=== PATIENT | male | born 1960 | race Caucasian/White ===

== ENCOUNTER → 2017-02-13 | Outpatient (CLI) | payer BC ==
--- NOTE | 2017-02-13 09:01 | CT ---
EXAMINATION TYPE: CT abdomen pelvis w con DATE OF EXAM: 02/13/2017 7:32 AM COMPARISON: NONE HISTORY: Lt Inguinal Hernia for 10 years per patient. History of vasectomy. CT DLP: 762.7 mGycm, Automated Exposure Control for Dose Reduction was Utilized. CONTRAST: CT scan of the abdomen and pelvis is performed with oral and with IV Contrast, patient injected with 100 mL of Omnipaque 300. FINDINGS: LUNG BASES: No significant abnormality is appreciated. LIVER/GB: No significant abnormality is appreciated. PANCREAS: No significant abnormality is seen. SPLEEN: No significant abnormality is seen. ADRENALS: No significant abnormality is seen. KIDNEYS: There are 2-3 calculi measuring up to 3 mm in size scattered throughout the right kidney, la rgest is seen on axial image 29 mid pole level. No left-sided renal calculi are present. There is sym metric cortical medullary uptake and excretion without evidence of hydronephrosis bilaterally. BOWEL: The oral contrast reaches level of the distal left colon. There is no suspicious small or larg e bowel dilatation seen. Normal contrast-filled appendix is seen extending medially from the cecum. T here are some diverticula in the sigmoid colon. There is no CT evidence for acute diverticulitis. The re are scattered pelvic phleboliths. PROSTATE/SEMINAL VESICLES: Some central zone calcifications are seen in normal size prostate gland. S eminal vesicles are somewhat bulky. LYMPH NODES: No greater than 1cm abdominal or pelvic lymph nodes are appreciated. OSSEOUS STRUCTURES: No significant abnormality is seen. OTHER: There is small fat-containing left inguinal hernia. There is mild mixed plaque in the visualiz ed abdominal aorta. IMPRESSION: Small fat-containing left inguinal hernia is confirmed. Nonobstructing small right-sided renal calculi are noted.
== END | disposition home or self-care (01) ==
LOC: RADCTMAIN 07:01
PROVIDERS: ATTEND Surgery
DX: K40.90 Unilateral inguinal hernia, without obstruction or gangrene, not specified as recurrent (principal); N20.0 Calculus of kidney
CPT/HCPCS: 74177; Q9967

== ENCOUNTER → 2017-03-06 | Day surgery (SDC) | payer BC ==
[2017-03-05 08:42] VITALS: BMI 25.5
[~2017-03-06] MED LIST: ALPRAZolam 0.5 MG TAB PO PRN; BUPIVACAIN-EPI 0.25%-1:200,000 30 ML VIAL SQ ONE; CLINDAMYCIN 900 MG in DEXTROSE 5% IN WATER 50 ML IVPB ONE; DEXAMETHASONE SOD PHOSPHATE 10 MG/ML 1 ML VIAL IV ONE; FAMOTIDINE 20 MG/2 ML VIAL IV PRN; GLYCOPYRROLATE 0.2 MG/ML 2 ML VIAL ONE; HEPARIN SODIUM,PORCINE 5,000 UNIT/ML 1 ML VIAL SQ ONE; KETOROLAC 30 MG/ML 1 ML VIAL ONE; LEVOFLOXACIN 500MG-D5W PMX 500 MG in DEXTROSE/WATER 1 100ML.BAG IVPB ONE; MIDAZOLAM 2 MG/2 ML VIAL IV PRN; MIDAZOLAM 2 MG/2 ML VIAL ONE; NEOSTIGMINE 1 MG/ML 10 ML VIAL ONE; ONDANSETRON 4 MG/2 ML VIAL IVP ONE; PROPOFOL 10 MG/ML 20 ML VIAL IV ONE; ROCURONIUM BROMIDE 10 MG/ML 10 ML VIAL IV ONE; SCOPOLAMINE 1.5MG/72HR PATCH TRANSDERM ONE; SUCCINYLCHOLINE CHLORIDE 100 MG/5 ML SYR IV ONE; fentaNYL (PF) 50 MCG/ML 2 ML AMP ONE
--- NOTE | 2017-03-06 11:51 | P.GSHP ---
History of Present Illness H&P Date: 03/06/17 Chief Complaint: Left inguinal hernia This a 56-year-old male referred from Dr. Moncho Alegria. Patient presents today for laparoscopic robotic system repair of left inguinal hernia. - Constitutional Constitutional: Reports as per HPI Past Medical History Past Medical History: Hypertension, Sleep Apnea/CPAP/BIPAP Additional Past Medical History / Comment(s): PAST HX, NO LONGER USES CPAP History of Any Multi-Drug Resistant Organisms: None Reported Additional Past Surgical History / Comment(s): NASAL SX X3 Past Anesthesia/Blood Transfusion Reactions: No Reported Reaction Past Psychological History: No Psychological Hx Reported Smoking Status: Never smoker Past Alcohol Use History: Occasional Past Drug Use History: Marijuana Additional Drug Use History / Comment(s): OCCASIONAL USE, INSTRUCTED NOT TO USE 24HRS PRIOR TO PROCEDURE - Past Family History Father Family Medical History: Cancer Additional Family Medical History / Comment(s): LYMPHOMA Medications and Allergies Home Medications Medication Instructions Recorded Confirmed Type Aspirin [Adult Low Dose Aspirin EC] 81 mg PO DAILY 03/05/17 03/05/17 History Ginkgo Biloba [place] Extract [Ginkgo] 60 mg PO DAILY 03/05/17 03/05/17 History Multivitamins, Thera [Multivitamin 1 tab PO DAILY 03/05/17 03/05/17 History (formulary)] Olmesartan/Hydrochlorothiazide 1 tab PO DAILY 03/05/17 03/05/17 History [Benicar Hct 40-25 mg Tablet] Allergies Allergy/AdvReac Type Severity Reaction Status Date / Time acetaminophen [From Vicodin] Allergy Rash/Hives Verified 03/06/17 11:15 hydrocodone [From Vicodin] Allergy Rash/Hives Verified 03/06/17 11:15 Penicillins Allergy Swelling Verified 03/06/17 11:15 Surgical - Exam Vital Signs Temp Pulse Resp BP Pulse Ox 98.1 F 74 16 140/77 100 03/06/17 11:08 03/06/17 11:08 03/06/17 11:08 03/06/17 11:08 03/06/17 11:08 - General well developed, no distress - Eyes PERRL - ENT normal pinna - Neck no masses - Respiratory normal expansion - Cardiovascular Rhythm: regular - Abdomen Abdomen: soft, non tender Hernia: inguinal (Reducible left inguinal hernia) Assessment and Plan Plan: Left renal hernia. We'll perform laparoscopic robotic system repair.
[2017-03-06] MEDS: LACTATED RINGERS 1,000 ML IV SCH (11:52)
[2017-03-06] MEDS: LIDOCAINE 1% 20 ML VIAL (10MG/ML) FOR IV START INTRADERMA PRN ×2 (11:52→11:53)
--- NOTE | 2017-03-06 13:11 | P.OP ---
Date of Procedure: 03/06/17 Preoperative Diagnosis: Left inguinal hernia Postoperative Diagnosis: Left internal hernia Procedure(s) Performed: Laparoscopic robotic-assisted repair of left inguinal hernia Anesthesia: TK Surgeon: Luke Bhatia Estimated Blood Loss (ml): 5 Pathology: none sent Condition: stable Disposition: PACU Description of Procedure: The patient's placed on the operating table in the supine position. The patient received general anesthesia. The patient's abdomen was prepped and draped in usual sterile fashion. The skin was anesthetized 1% local Xylocaine at the incision sites. Using an 11 blade a skin incision was made at the umbilicus. The fascia was grasped with a Valeriy and then the peritoneal cavity was entered with the Veress needle. Position of the Veress needle was confirmed with a positive drop test. After adequate insufflation a 5 mm trocar was placed into the peritoneal cavity. The Laparoscope was placed the peritoneal cavity. And a robotic 8 mm trocar was placed in the right lateral position and then another 8 mm robotic trochars placed in the left lateral position. The original 5 mm trocar was exchanged for a 12 mm trocar. The patient was placed in reverse Trendelenburg and then the patient was docked to the robot. Next the peritoneum over top of the left inguinal hernia was incised and then using blunt and sharp dissection and electrocautery the hernia sac was dissected free from the floor of the inguinal canal. The hernia sac was completely reduced into the peritoneal cavity. And then using the Pro tin tie machine operator automatic mesh the hernia was repaired. The peritoneum was then sutured with 20V lock suture. The patient was then undocked the robot. The needle was withdrawn from the peritoneal cavity. The umbilical trocar site was closed with 0 Ethibond suture. The skin was closed interrupted 3-0 Monocryl suture. Dermabond dressing was applied. Patient was sent to recovery in stable condition.
[2017-03-06 13:33] VITALS: RESP 18; TEMP 97.8
[2017-03-06] MEDS: HYDROmorphone 1 MG/ML 1 ML SYRINGE IVP PRN ×2 (13:42→14:15)
[2017-03-06 14:53] VITALS: BP 130/88; PULSE 92
== END ==
LOC: OR 09:56
PROVIDERS: ATTEND Surgery
DX: K40.90 Unilateral inguinal hernia, without obstruction or gangrene, not specified as recurrent (principal); I10 Essential (primary) hypertension; G47.30 Sleep apnea, unspecified; Z79.82 Long term (current) use of aspirin; Z79.899 Other long term (current) drug therapy; Z88.6 Allergy status to analgesic agent; Z88.5 Allergy status to narcotic agent; Z88.0 Allergy status to penicillin
CPT/HCPCS: 49650; J2250; J1644; J1100; J2710; J2405; J1956; J3010; J1885; J1170; J0330; J2704

== ENCOUNTER → 2017-03-19 | Outpatient (CLI) | payer BC ==
--- NOTE | 2017-03-19 09:55 | US ---
EXAMINATION TYPE: US prostate transrectal DATE OF EXAM: 03/19/2017 9:42 AM COMPARISON: NONE CLINICAL HISTORY: R97.2 elevated PSA. This examination was performed using the transrectal probe. EXAM MEASUREMENTS: Gland Size: 4.1 x 1.8 x 4.6 Volume: 17.9 Predicted PSA: 2.1 Actual PSA (if available):2.5 No masses seen in peripheral zone, central zone thick walled cyst note. IMPRESSION: No suspicious peripheral zone lesion is identified. Predicted PSA = volume x 0.12 ng/ml Calculated Volume = 0.5236 x L x W x H
== END | disposition home or self-care (01) ==
LOC: RADUSMAIN 08:52
PROVIDERS: ATTEND Family Medicine
DX: R97.20 Elevated prostate specific antigen [PSA] (principal)
CPT/HCPCS: 76872

== ENCOUNTER 2017-04-11 06:26 | Day surgery (SDC) | payer BC ==
[2017-04-09 17:24] VITALS: BMI 25.0
[~2017-04-11 06:26] MED LIST changes: -ALPRAZolam 0.5 MG TAB PO PRN; -BUPIVACAIN-EPI 0.25%-1:200,000 30 ML VIAL SQ ONE; -CLINDAMYCIN 900 MG in DEXTROSE 5% IN WATER 50 ML IVPB ONE; -DEXAMETHASONE SOD PHOSPHATE 10 MG/ML 1 ML VIAL IV ONE; -FAMOTIDINE 20 MG/2 ML VIAL IV PRN; -GLYCOPYRROLATE 0.2 MG/ML 2 ML VIAL ONE; -HEPARIN SODIUM,PORCINE 5,000 UNIT/ML 1 ML VIAL SQ ONE; -KETOROLAC 30 MG/ML 1 ML VIAL ONE; +LACTATED RINGERS 1,000 ML IV SCH; -LEVOFLOXACIN 500MG-D5W PMX 500 MG in DEXTROSE/WATER 1 100ML.BAG IVPB ONE; -MIDAZOLAM 2 MG/2 ML VIAL IV PRN; -MIDAZOLAM 2 MG/2 ML VIAL ONE; -NEOSTIGMINE 1 MG/ML 10 ML VIAL ONE; -ONDANSETRON 4 MG/2 ML VIAL IVP ONE; -PROPOFOL 10 MG/ML 20 ML VIAL IV ONE; -ROCURONIUM BROMIDE 10 MG/ML 10 ML VIAL IV ONE; -SCOPOLAMINE 1.5MG/72HR PATCH TRANSDERM ONE; -SUCCINYLCHOLINE CHLORIDE 100 MG/5 ML SYR IV ONE; -fentaNYL (PF) 50 MCG/ML 2 ML AMP ONE
[2017-04-11] MEDS ORDERED: LACTATED RINGERS 1,000 ML IV ONE (07:06)
[2017-04-11 07:12] VITALS: TEMP 98
[2017-04-11] MEDS ORDERED: PROPOFOL 10 MG/ML 20 ML VIAL IV ONE (07:49)
--- NOTE | 2017-04-11 07:59 | P.GSHP ---
History of Present Illness H&P Date: 04/11/17 Chief Complaint: Screening colonoscopy This is a 56-year-old male referred from Dr. Moncho Alegria. Patient presents today for screening colonoscopy. He denies any GI complaints. The patient had a. Colostomy 7 years ago which time he is found have benign polyps. - Constitutional Constitutional: Reports as per HPI Past Medical History Past Medical History: Hypertension, Sleep Apnea/CPAP/BIPAP Additional Past Medical History / Comment(s): NO LONGER USES CPAP History of Any Multi-Drug Resistant Organisms: None Reported Past Surgical History: Hernia Repair, Tonsillectomy Additional Past Surgical History / Comment(s): Nasal Surgery X3 Past Anesthesia/Blood Transfusion Reactions: No Reported Reaction Past Psychological History: No Psychological Hx Reported Smoking Status: Never smoker Past Alcohol Use History: Occasional Past Drug Use History: Marijuana Additional Drug Use History / Comment(s): OCCASIONAL USE - Past Family History Father Family Medical History: Cancer Additional Family Medical History / Comment(s): LYMPHOMA Medications and Allergies Home Medications Medication Instructions Recorded Confirmed Type Aspirin [Adult Low Dose Aspirin EC] 81 mg PO DAILY 03/05/17 04/11/17 History Ginkgo Biloba [place] Extract [Ginkgo] 60 mg PO DAILY 03/05/17 04/11/17 History Multivitamins, Thera [Multivitamin 1 tab PO DAILY 03/05/17 04/11/17 History (formulary)] Olmesartan/Hydrochlorothiazide 1 tab PO DAILY 03/05/17 04/11/17 History [Benicar Hct 40-25 mg Tablet] Allergies Allergy/AdvReac Type Severity Reaction Status Date / Time acetaminophen [From Vicodin] Allergy Rash/Hives Verified 04/11/17 07:03 hydrocodone [From Vicodin] Allergy Rash/Hives Verified 04/11/17 07:03 Penicillins Allergy Swelling Verified 04/11/17 07:03 Surgical - Exam Vital Signs Temp Pulse Resp BP Pulse Ox 98.0 F 72 18 125/74 92 L 04/11/17 07:07 04/11/17 07:07 04/11/17 07:07 04/11/17 07:07 04/11/17 07:07 - General well developed, no distress - Eyes PERRL - ENT normal pinna - Neck no masses - Respiratory normal expansion - Cardiovascular Rhythm: regular - Abdomen Abdomen: soft, non tender Assessment and Plan Plan: We will perform screening colonoscopy
--- NOTE | 2017-04-11 08:16 | P.OP ---
Date of Procedure: 04/11/17 Preoperative Diagnosis: Screening colonoscopy Postoperative Diagnosis: Diverticulosis Procedure(s) Performed: Colonoscopy Implants: Anesthesia: MAC Surgeon: Luke Bhatia Pathology: none sent Condition: stable Disposition: PACU Indications for Procedure: Operative Findings: Description of Procedure: The patient's placed on the endoscopy table in the lateral position. He received IV sedation. Digital rectal exam was performed which revealed no abnormalities. The flexible colonoscope was then placed the patient's anus passed throughout the entire colon. The ileocecal valve was visualized. The cecum, ascending and transverse colon appeared normal. In the descending; was mild diverticular changes. Scope was then brought back the rectum and this appeared normal. Scope was withdrawn for patient.
[2017-04-11 08:22] VITALS: RESP 16
[2017-04-11 08:45] VITALS: BP 122/74; PULSE 80
== END 2017-04-11 08:50 | disposition home or self-care (01) ==
LOC: ORWHC2ENDO 06:26
PROVIDERS: ATTEND Surgery
DX: Z12.11 Encounter for screening for malignant neoplasm of colon (principal); K57.30 Diverticulosis of large intestine without perforation or abscess without bleeding; I10 Essential (primary) hypertension; G47.30 Sleep apnea, unspecified; Z88.5 Allergy status to narcotic agent; Z88.0 Allergy status to penicillin; Z79.82 Long term (current) use of aspirin; Z79.899 Other long term (current) drug therapy; Z80.7 Family history of other malignant neoplasms of lymphoid, hematopoietic and related tissues
CPT/HCPCS: G0121; J2704

== ENCOUNTER → 2017-10-25 | Day surgery (SDC) | payer BC ==
[2017-10-25 10:49] VITALS: RESP 16; TEMP 98
[2017-10-25 22:07] VITALS: BP 130/63; PULSE 76
--- NOTE | 2017-10-25 22:53 | US ---
Ultrasound-guided transrectal biopsy of the prostate gland. HISTORY: Elevated PSA. Informed consent was obtained and all the patient's questions were answered. Topical Xylocaine gel w as applied to the probe. The prostate gland was localized sonographically and 12 total samples were obtained with 2 samples obtained from each site. An 18-gauge biopsy device was utilized. Sites incl ude right base, left base, right mid gland, left mid gland, right apex and left apex. Samples were s ent to pathology further evaluation. The patient was monitored following the biopsy for approximatel y one hour. At the time of discharge patient's urine was clear and vitals were stable. IMPRESSION: Successful ultrasound guided core biopsy of the prostate gland. Pathology results are pe nding.
== END ==
LOC: RADPROMAIN 08:49
PROVIDERS: ATTEND Family Medicine
DX: N41.0 Acute prostatitis (principal); N42.89 Other specified disorders of prostate
CPT/HCPCS: 55700; 76942; 88305; 88341; 88342

== ENCOUNTER → 2018-09-09 | Outpatient (CLI) | payer BC ==
--- NOTE | 2018-09-10 09:57 | MR ---
EXAMINATION TYPE: MR Prostate wo/w con DATE OF EXAM: 09/09/2018 COMPARISON: Transrectal ultrasound October 09, 2017 INDICATION: Prostate Ca, PSA: 5.13 ng/ml of May 23, 2018. This is increased from 3.525 on ultrasound report October 09 7. Recent Biopsy and Date: October 25, 2017 Pathology Report (If Applicable): Left apex core biopsy prostatic adenocarcinoma [place] pattern 3+3 (total score 6) involving 1 or, less than 5% of the tissue measuring less than 1 mm in length. TECHNIQUE: Examination was performed using a 3T MRI without an endorectal coil. Multiparametric imaging was perf ormed with T2 mutliplanar sequences, axial diffusion weighted imaging and dynamic contrast enhanced i maging, utilizing 7.5 mL intravenous Gadavist gadolinium contrast. FINDINGS: T1-weighted images show no significant residual hyperintensity or blood product. PROSTATE VOLUME: 4.8 cm SI x 3.4 cm AP x 3.7 cm LR Vol= 26.05 cc PSA DENSITY: 3.126 ng/ml/cc Peripheral zone shows heterogeneity with slightly indistinct slightly hypointense areas on ADC mappin g. No suspicious at least focal mild to moderate hypointense areas with increased signal on diffusion -weighted images are identified to correspond to area of biopsy-proven neoplasm left apex. Central transitional zone shows marked heterogeneity without suspicious focal nodule identified on T2 -weighted images. Capsular margin is maintained. Neurovascular bundle is intact. No suspicious adjacent adenopathy is s een. Seminal vesicles are symmetric and felt within normal limits axial image 23. Incidental mild wall thickening with diverticula in visualized sigmoid colon of the upper pelvis. Bladder is poorly distended with trabeculation and wall thickening up to 7 mm noted. There is thin septated small to moderate-sized right scrotal fluid collection or hydrocele or less li humberto large epididymal cysts superior to the right testicle noted best series 401 image 5. IMPRESSION: A focus of clinically significant cancer is not identified. Highest Assessment Category: 2 MRI Stage: T1c N0 M0 based on review of pelvic images. False negative rates for MRI range from 5-20% depending on risk profile. Assessment Categories: 1 ? Very low (clinically significant cancer is highly unlikely to be present) 2 ? Low (clinically significant cancer is unlikely to be present) 3 ? Intermediate (the presence of clinically significant cancer is equivocal) 4 ? High (clinically significant cancer is likely to be present) 5 ? Very high (clinically significant cancer is highly likely to be present) Locations: PZ = peripheral zone; TZ = transition zone CZ=central zone; AFS = anterior fibromuscular stroma a=anterior half (i.e. PZa=anterior half of peripheral zone); pm= posterior medial (i.e PZpm) pl = postero-lateral (i.e. PZpl); p = posterior half (i.e. TZp) ; a = anterior half (i.e TZa or P Za) Other: N=no or no; E= equivocal; Y=yes EPE = extraprostatic extension NVB = neurovascular bundle NA = not applicable/not available
== END | disposition home or self-care (01) ==
LOC: RADMRIMAIN 21:08
PROVIDERS: ATTEND Urology
DX: C61 Malignant neoplasm of prostate (principal)
CPT/HCPCS: 72197; 36415; A9585

== ENCOUNTER → 2018-09-09 | Outpatient (CLI) | payer BC | END | disposition home or self-care (01) | LOC: RADMRIMAIN 08:08 | PROVIDERS: ATTEND Urology | DX: C61 Malignant neoplasm of prostate (principal) | CPT/HCPCS: 82565 ==

== ENCOUNTER → 2020-08-11 | Outpatient (CLI) | payer OTHER ==
--- NOTE | 2020-08-11 07:55 | US ---
EXAMINATION TYPE: US scrotum with doppler. Grayscale and color Doppler Duplex imaging performed of t ursula scrotum. DATE OF EXAM: 08/11/2020 COMPARISON: NONE CLINICAL HISTORY: I86.1 Scrotal varices. pain left testicle EXAM MEASUREMENTS: TESTICLES: Right Testicle: 4.5 x 2.9 x 4.3 cm Left Testicle: 3.9 x 2.3 x 3.2 cm EPIDIDYMIS HEAD: Right Epididymis: 2.5 cm Left Epididymis: 0.7 cm Doppler performed to assess for testicular vascularity; good bilateral color flow and waveforms are s een. There is no evidence of testicular torsion. Presence of hydroceles: small fluid collection lateral to right testicle = 3.5cm multiple cystic areas noted within right epididymis area = 3.1 x 2.7 x 4.1cm IMPRESSION: 1. Epididymal cysts, especially notable on the right epididymis.
== END | disposition home or self-care (01) ==
LOC: RADUSWWP 06:58
PROVIDERS: ATTEND Surgery
DX: N50.3 Cyst of epididymis (principal)
CPT/HCPCS: 76870; 93975

== ENCOUNTER → 2020-09-05 | Outpatient (CLI) | payer OTHER ==
--- NOTE | 2020-09-05 15:42 | MR ---
EXAMINATION TYPE: MR Prostate wo/w con DATE OF EXAM: 09/05/2020 COMPARISON: Prior prostate MRI September 09, 2018 IMAGE QUALITY: Suboptimal but repeat not required. Motion artifact noted. INDICATION: Prostate CA PSA: 3.85 ng/ml on July 18, 2020 decreased from 5.13 on May 23, 2018 Recent Biopsy and Date: October 25, 2017 Pathology Report (If Applicable): Prostatic adenocarcinoma [place] score 3+3 = 6 less than 5% of tiss ue measuring less than 1 mm of length left apex. TECHNIQUE: Examination was performed using a 3T MRI without an endorectal coil. Multiparametric imaging was perf ormed with T2 mutliplanar sequences, axial diffusion weighted imaging and dynamic contrast enhanced i maging, utilizing 8.5 mL intravenous Gadavist gadolinium contrast. FINDINGS: PROSTATE VOLUME: 3.6 cm SI x 3.6 cm AP x 4.5 cm LR Vol= 30.5 cc PSA DENSITY: 3.66 ng/ml/cc Peripheral zone shows some areas of indistinct hypointensity without mild to moderate focal hypointen sity on ADC mapping or increased signal on diffusion-weighted imaging. Heterogeneous transitional zone without distinct areas of suspicious T2 hypointensity. Prostatic capsule is maintained. Seminal vesicles felt within normal limits. Improved distention of bladder without suspicious wall thickening on current study. Some diverticula in the sigmoid colon. Small fat-containing left inguinal hernia. Visualized osseous structures are intact. Cystic change to the right epididymis is redemonstrated. IMPRESSION: A focus of clinically significant cancer is not identified. No significant change from prior. Highest Assessment Category: 2 MRI Stage: T 1c N0 M0 based on review of pelvic images. False negative rates for MRI range from 5-20% depending on risk profile. Assessment Categories: 1 ? Very low (clinically significant cancer is highly unlikely to be present) 2 ? Low (clinically significant cancer is unlikely to be present) 3 ? Intermediate (the presence of clinically significant cancer is equivocal) 4 ? High (clinically significant cancer is likely to be present) 5 ? Very high (clinically significant cancer is highly likely to be present)
== END | disposition home or self-care (01) ==
LOC: RADMRIMAIN 08:06
PROVIDERS: ATTEND Urology
DX: C61 Malignant neoplasm of prostate (principal)
CPT/HCPCS: 72197; A9585

== ENCOUNTER 2020-11-10 21:34 | Inpatient (IN) | payer MEDICAID, OTHER ==
--- NOTE | 2020-11-10 21:49 | ED ---
General Adult HPI - General Source: RN notes reviewed <John Spears - Last Filed: 11/10/20 22:52> <Carlos Elizalde - Last Filed: 11/11/20 03:56> - General Stated complaint: Mental Health Time Seen by Provider: 11/10/20 21:42 - History of Present Illness Initial comments: 60-year-old male with a past medical history of hypertension, sleep apnea presents to the emergency room by police escort for suicidal thoughts and petition. Patient apparently overdosed on his medications this morning around 2 AM which is approximately 20 hours prior to arrival. Patient states he took about 50 pills of his Xanax and possibly some of his blood pressure medication and sertraline. Patient states he did this to kill himself. States that it was the wrong thing to do but it was over his "soul mate." The police were on scene and they state patient did have a gun on the table when they arrived. Patient has no other complaints at this time including shortness of breath, chest pain, abdominal pain, nausea or vomiting, headache, or visual changes. (John Spears) - Related Data Home Medications Medication Instructions Recorded Confirmed Olmesartan/Hydrochlorothiazide 1 tab PO BID 03/05/17 11/10/20 [Benicar Hct 40-25 mg Tablet] ALPRAZolam [ALPRAZolam XR] 2 mg PO BID PRN 11/10/20 11/10/20 ALPRAZolam [Xanax] 0.5 mg PO QID PRN 11/10/20 11/10/20 Plexus Bio-Cleanse 2 cap PO DAILY 11/10/20 11/10/20 Protriptyline HCl [Vivactil] 10 mg PO BID 11/10/20 11/10/20 Sertraline [Zoloft] 200 mg PO DAILY 11/10/20 11/10/20 hydrOXYzine HCL [Atarax] 25 mg PO TID 11/10/20 11/10/20 Allergies Allergy/AdvReac Type Severity Reaction Status Date / Time acetaminophen [From Vicodin] Allergy Rash/Hives Verified 11/10/20 22:58 hydrocodone [From Vicodin] Allergy Rash/Hives Verified 11/10/20 22:58 Penicillins Allergy Swelling Verified 11/10/20 22:58 Review of Systems ROS Other: All systems not noted in ROS Statement are negative. <John Spears - Last Filed: 11/10/20 22:52> ROS Other: All systems not noted in ROS Statement are negative. <Carlos Elizalde - Last Filed: 11/11/20 03:56> ROS Statement: Those systems with pertinent positive or pertinent negative responses have been documented in the HPI. Past Medical History Past Medical History: Hypertension, Sleep Apnea/CPAP/BIPAP Additional Past Medical History / Comment(s): PAST HX, NO LONGER USES CPAP, inguinal hernia - left side. History of Any Multi-Drug Resistant Organisms: None Reported Past Surgical History: Hernia Repair, Tonsillectomy Additional Past Surgical History / Comment(s): NASAL SX X3, colonoscopy, Past Anesthesia/Blood Transfusion Reactions: No Reported Reaction Past Psychological History: Depression Past Alcohol Use History: Occasional Past Drug Use History: Marijuana Additional Drug Use History / Comment(s): OCCASIONAL USE, INSTRUCTED NOT TO USE 24HRS PRIOR TO PROCEDURE - Past Family History Father Family Medical History: Cancer Additional Family Medical History / Comment(s): LYMPHOMA <John Spears P - Last Filed: 11/10/20 22:52> General Exam General appearance: alert, other (Slightly sleepy however speaking in full sentences and easily arousable) Head exam: Present: atraumatic (Slightly lethargic however alert and able to sp eak) Eye exam: Present: normal appearance ENT exam: Present: normal exam Neck exam: Present: normal inspection, full ROM Respiratory exam: Present: normal lung sounds bilaterally. Absent: respiratory distress Cardiovascular Exam: Present: regular rate, normal rhythm GI/Abdominal exam: Present: soft, normal bowel sounds. Absent: distended, tenderness, guarding, rebound, rigid Neurological exam: Present: alert, oriented X3 <John Spears - Last Filed: 11/10/20 22:52> Course <Carlos Elizalde - Last Filed: 11/11/20 03:56> Vital Signs 11/10/20 11/11/20 11/11/20 21:41 00:57 02:38 Temperature 98 F 98 F Pulse Rate 96 90 80 Respiratory 18 18 18 Rate Blood Pressure 113/66 120/61 103/66 O2 Sat by Pulse 98 98 97 Oximetry - Reevaluation(s) Reevaluation #1: 11/11/20 03:55 Medically clear for psychiatric evaluation (Carlos Elizalde) Reevaluation #2: 11/11/20 03:55 Patient reseen and evaluated needing psychiatric admission (Carlos Elizalde) Medical Decision Making <John Spears - Last Filed: 11/10/20 22:52> - Lab Data Result diagrams: 11/10/20 22:53 11/10/20 22:53 <Carlos Elizalde - Last Filed: 11/11/20 03:56> - Medical Decision Making Vitals are stable. On initial examination patient is awake and alert however somewhat drowsy. Poison control was contacted by RN. I considered at this time is overdose was around 2 AM this morning. EKG was performed. Care signed out to Dr. Elizalde at 2300 pending laboratory draw, medical clearance, and psychiatric evaluation. Patient is currently petitioned by state police. (John Spears) 60 male to the ER for evaluation patient will be admitted for psychiatric evaluation and treatment (Carlos Elizalde) - Lab Data Lab Results 11/10/20 11/10/20 11/10/20 Range/Units 22:53 22:53 22:53 WBC 9.0 (3.8-10.6) k/uL RBC 4.51 (4.30-5.90) m/uL Hgb 14.1 (13.0-17.5) gm/dL Hct 43.0 (39.0-53.0) % MCV 95.5 (80.0-100.0) fL MCH 31.2 (25.0-35.0) pg MCHC 32.7 (31.0-37.0) g/dL RDW 12.6 (11.5-15.5) % Plt Count 303 (150-450) k/uL MPV 7.9 Neutrophils % 65 % Lymphocytes % 26 % Monocytes % 4 % Eosinophils % 3 % Basophils % 0 % Neutrophils # 5.8 (1.3-7.7) k/uL Lymphocytes # 2.4 (1.0-4.8) k/uL Monocytes # 0.4 (0-1.0) k/uL Eosinophils # 0.3 (0-0.7) k/uL Basophils # 0.0 (0-0.2) k/uL Sodium 139 (137-145) mmol/L Potassium 4.7 (3.5-5.1) mmol/L Chloride 104 (98-107) mmol/L Carbon Dioxide 29 (22-30) mmol/L Anion Gap 6 mmol/L BUN 21 H (9-20) mg/dL Creatinine 1.52 H (0.66-1.25) mg/dL Est GFR (CKD-EPI)AfAm 57 (>60 ml/min/1.73 sqM) Est GFR (CKD-EPI)NonAf 49 (>60 ml/min/1.73 sqM) Glucose 94 (74-99) mg/dL Calcium 9.3 (8.4-10.2) mg/dL Total Bilirubin 0.5 (0.2-1.3) mg/dL AST 27 (17-59) U/L ALT 24 (4-49) U/L Alkaline Phosphatase 51 (38-126) U/L Total Protein 6.8 (6.3-8.2) g/dL Albumin 4.1 (3.5-5.0) g/dL Salicylates <1.0 mg/dL Urine Opiates Screen Not Detected (NotDetected) Ur Oxycodone Screen Not Detected (NotDetected) Urine Methadone Screen Not Detected (NotDetected) Ur Propoxyphene Screen Not Detected (NotDetected) Acetaminophen <10.0 ug/mL Ur Barbiturates Screen Not Detected (NotDetected) U Tricyclic Antidepress Not Detected (NotDetected) Ur Phencyclidine Scrn Not Detected (NotDetected) Ur Amphetamines Screen Not Detected (NotDetected) U Methamphetamines Scrn Not Detected (NotDetected) U Benzodiazepines Scrn Detected H (NotDetected) Urine Cocaine Screen Not Detected (NotDetected) U Marijuana (THC) Screen Not Detected (NotDetected) Serum Alcohol <10 mg/dL Disposition Is patient prescribed a controlled substance at d/c from ED?: No Time of Disposition: 22:53 <John Spears P - Last Filed: 11/10/20 22:52> Is patient prescribed a controlled substance at d/c from ED?: No <Carlos Elizalde - Last Filed: 11/11/20 03:56> Clinical Impression: Suicide attempt by multiple drug overdose Disposition: TRANSFER TO PSYCH HOSP/UNIT Condition: Fair
[2020-11-10] MEDS ORDERED: SODIUM CHLORIDE 0.9% 1,000 ML IV STA (22:50)
[2020-11-10 23:15] LABS: Basophils % (A) 0 %; Eosinophils # (A) 0.3 k/uL (0-0.7); Eosinophils % (A) 3 %; HGB 14.1 gm/dL (13.0-17.5); Lymphocytes # (A) 2.4 k/uL (1.0-4.8); Lymphocytes % (A) 26 %; MCH 31.2 pg (25.0-35.0); MCHC 32.7 g/dL (31.0-37.0); MCV 95.5 fL (80.0-100.0); Mean Platelet Volume 7.9; Monocytes # (A) 0.4 k/uL (0-1.0); Monocytes % (A) 4 %; Neutrophils # (A) 5.8 k/uL (1.3-7.7); Neutrophils % (A) 65 %; Platelet Count 303 k/uL (150-450); RBC 4.51 m/uL (4.30-5.90); RDW 12.6 % (11.5-15.5)
[2020-11-10 23:37] LABS: ALT 24 U/L (4-49); AST 27 U/L (17-59); Acetaminophen <10.0 ug/mL; African American GFR (CKD) 57 (>60 ml/min/1.73 sqM); Albumin 4.1 g/dL (3.5-5.0); Alcohol <10 mg/dL; Alkaline Phosphatase 51 U/L (38-126); Anion Gap 6 mmol/L; Blood Urea Nitrogen 21 mg/dL (9-20); Calcium 9.3 mg/dL (8.4-10.2); Carbon Dioxide 29 mmol/L (22-30); Chloride 104 mmol/L (98-107); Glucose 94 mg/dL (74-99); Non-African American GFR(CKD) 49 (>60 ml/min/1.73 sqM); Potassium 4.7 mmol/L (3.5-5.1); Salicylate <1.0 mg/dL; Sodium 139 mmol/L (137-145); Total Bilirubin 0.5 mg/dL (0.2-1.3); Total Protein 6.8 g/dL (6.3-8.2)
[2020-11-11 00:53] LABS: Amphetamine Screen,Urine Not Detected (NotDetected); Barbiturate Screen,Urine Not Detected (NotDetected); Benzodiazepines Screen,Urine Detected (NotDetected); Cocaine Screen,Urine Not Detected (NotDetected); Methadone Screen, Urine Not Detected (NotDetected); Opiate Screen,Urine Not Detected (NotDetected); Oxycodone Screen, Urine Not Detected (NotDetected); Phencyclidine Screen,Urine Not Detected (NotDetected); Tricyclic Antidepressant,Urine Not Detected (NotDetected); Urn Cannabinoid Scrn Not Detected (NotDetected)
[2020-11-11] MEDS ORDERED: MAGNESIUM HYDROXIDE 2,400 MG/10 ML CUP PO PRN (03:38)
[2020-11-11] MEDS ORDERED: MAG HYDROX/AL HYDROX/SIMETH 30 ML CUP PO PRN (03:38)
[2020-11-11] MEDS: NICOTINE 14MG/24HR PATCH TRANSDERM SCH (08:54)
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
[2020-11-11] MEDS: PROTRIPTYLINE HCL 10 MG PO SCH (19:50)
[2020-11-11] MEDS: LOSARTAN 50 MG TAB PO SCH (21:30)
[2020-11-11] MEDS: hydroCHLOROthiazide 25 MG TAB PO SCH (21:30)
[2020-11-12 07:54] LABS: Basophils % (A) 0 %; Eosinophils # (A) 0.2 k/uL (0-0.7); Eosinophils % (A) 3 %; HGB 15.5 gm/dL (13.0-17.5); Lymphocytes # (A) 1.9 k/uL (1.0-4.8); Lymphocytes % (A) 27 %; MCHC 33.7 g/dL (31.0-37.0); Mean Platelet Volume 7.4; Monocytes # (A) 0.3 k/uL (0-1.0); Monocytes % (A) 4 %; Neutrophils # (A) 4.6 k/uL (1.3-7.7); Neutrophils % (A) 65 %; Platelet Count 296 k/uL (150-450); RBC 4.85 m/uL (4.30-5.90)
[2020-11-12 08:11] LABS: Albumin 4.3 g/dL (3.5-5.0); Calcium 9.8 mg/dL (8.4-10.2); Potassium 4.2 mmol/L (3.5-5.1); Total Bilirubin 0.6 mg/dL (0.2-1.3); Total Protein 7.1 g/dL (6.3-8.2)
[2020-11-12] MEDS: NICOTINE 14MG/24HR PATCH TRANSDERM SCH (08:49)
[2020-11-12] MEDS: LOSARTAN 50 MG TAB PO SCH ×2 (08:50→21:21)
[2020-11-12] MEDS: hydroCHLOROthiazide 25 MG TAB PO SCH ×2 (08:50→21:21)
[2020-11-12] MEDS: PROTRIPTYLINE HCL 10 MG PO SCH ×2 (08:51→21:16)
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
[2020-11-12 14:56] LABS: Hemoglobin A1C 5.5 % (4.0-6.0)
[2020-11-13] MEDS: LOSARTAN 50 MG TAB PO SCH ×2 (08:09→21:59)
[2020-11-13] MEDS: hydroCHLOROthiazide 25 MG TAB PO SCH ×2 (08:09→21:59)
[2020-11-13] MEDS: FLUoxetine HCL 10 MG CAP PO SCH (08:09)
[2020-11-13] MEDS: NICOTINE 14MG/24HR PATCH TRANSDERM SCH (08:10)
[2020-11-13] MEDS: PROTRIPTYLINE HCL 10 MG PO SCH ×2 (08:14→20:32)
--- NOTE | 2020-11-13 10:35 | P.PN ---
Progress Note - Text Progress Note Date: 11/13/20 Interval history: Patient was seen in his room and was directable and agreeable to speak with film writer. Patient is currently very tearful. Patient expresses that he just got off the phone with his daughter and had a really good conversation and is very emotional right now. He states that he was also experiencing significant nausea and threw up this morning. He states that he feels better now that he is able to pass stool after drinking some prune juice. He is currently not reporting any suicidal or homicidal ideation, intention, and/or plan. He expresses significant regret for his actions and is very tearful and emotional. He is not reporting any auditory or visual hallucinations. The patient did state that he is uncertain of when he last took his psychotropic medications prior to this overdose on Xanax. Mental status exam: General Appearance: Patient appears to be stated age is alert, directable, and cooperative. Patient has a lesion on the bridge of his nose. Behavior: Patient is very tearful and emotional during the interview and is crying. Speech: Patient's speech is fluent and nonpressured. Mood/Affect: Mood is very sad, affect is congruent and tearful. Suicidality/Homicidality: Patient denies having any suicidal or homicidal ideation intent or plan. Perceptions: Patient denies any auditory or visual hallucinations. Though content/process: There is no evidence of any delusional thought content and thought process is linear and goal-directed. Memory and concentration: AOX3, grossly intact for the purposes of this session Judgment and insight: Poor Assessment/Plan: Continue with current diagnosis. Patient continues to meet cammie howard for inpatient psychiatric admission for symptom stabilization and safety. Continue Prozac for management of depression and to treat any possible discontinuation syndrome the abrupt discontinuation of his antidepressant medications which may contribute to his nausea. On Saturday, we will attempt to contact Dr. Fernandes's office to obtain his medical records and list of prior trials of psychotropic medications. Monitor for medication compliance and for any psychotropic medication side effects. Will continue to monitor ongoing response to treatment. Encouraged participation in milieu.
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
[2020-11-13] MEDS: LORazepam 1 MG TAB PO PRN (14:23)
--- NOTE | 2020-11-13 20:09 | XR ---
EXAMINATION TYPE: XR KUB DATE OF EXAM: 11/13/2020 COMPARISON: NONE HISTORY: Vomiting. Abdominal pain TECHNIQUE: 2 views upright FINDINGS: There is no sign of intestinal obstruction or pneumoperitoneum. Fecal pattern is normal. Th is possible 3 mm calculus over the right kidney. Lung bases are clear. There is no evidence of a mass . IMPRESSION: Nonacute abdomen.
[2020-11-13 20:17] LABS: Basophils % (A) 0 %; Eosinophils # (A) 0.1 k/uL (0-0.7); Eosinophils % (A) 0 %; HCT 47.8 % (39.0-53.0); HGB 16.1 gm/dL (13.0-17.5); Lymphocytes # (A) 1.1 k/uL (1.0-4.8); Lymphocytes % (A) 8 %; MCH 31.5 pg (25.0-35.0); MCHC 33.6 g/dL (31.0-37.0); MCV 93.8 fL (80.0-100.0); Mean Platelet Volume 7.5; Monocytes # (A) 0.4 k/uL (0-1.0); Monocytes % (A) 3 %; Neutrophils # (A) 11.2 k/uL (1.3-7.7); Neutrophils % (A) 87 %; Platelet Count 362 k/uL (150-450); RBC 5.09 m/uL (4.30-5.90); RDW 11.9 % (11.5-15.5); WBC 12.8 k/uL (3.8-10.6)
[2020-11-13] MEDS: ONDANSETRON ODT 4 MG TAB PO PRN (20:17)
[2020-11-13 20:27] LABS: Albumin 5.1 g/dL (3.5-5.0); Calcium 10.1 mg/dL (8.4-10.2); Potassium 4.3 mmol/L (3.5-5.1); Total Bilirubin 0.7 mg/dL (0.2-1.3); Total Protein 8.2 g/dL (6.3-8.2)
[2020-11-14] MEDS: ACETAMINOPHEN TAB 325 MG TAB PO PRN (06:27)
[2020-11-14] MEDS: LORazepam 1 MG TAB PO PRN ×2 (06:27→12:37)
[2020-11-14] MEDS: ONDANSETRON ODT 4 MG TAB PO PRN ×2 (07:30→12:37)
[2020-11-14] MEDS: LOSARTAN 50 MG TAB PO SCH ×2 (09:30→20:41)
[2020-11-14] MEDS: hydroCHLOROthiazide 25 MG TAB PO SCH ×2 (09:30→20:41)
[2020-11-14] MEDS: FLUoxetine HCL 10 MG CAP PO SCH (09:30)
[2020-11-14] MEDS: NICOTINE 14MG/24HR PATCH TRANSDERM SCH (09:30)
[2020-11-14] MEDS: PROTRIPTYLINE HCL 10 MG PO SCH (09:31)
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
[2020-11-15] MEDS: ACETAMINOPHEN TAB 325 MG TAB PO PRN (05:43)
[2020-11-15] MEDS: hydroCHLOROthiazide 25 MG TAB PO SCH ×2 (07:52→21:00)
[2020-11-15] MEDS: LOSARTAN 50 MG TAB PO SCH ×2 (07:52→21:00)
[2020-11-15] MEDS: NICOTINE 14MG/24HR PATCH TRANSDERM SCH (07:56)
[2020-11-15 08:08] LABS: Basophils % (A) 0 %; Eosinophils % (A) 0 %; HCT 48.7 % (39.0-53.0); HGB 16.3 gm/dL (13.0-17.5); Lymphocytes # (A) 2.4 k/uL (1.0-4.8); Lymphocytes % (A) 20 %; MCH 31.5 pg (25.0-35.0); MCHC 33.5 g/dL (31.0-37.0); MCV 94.1 fL (80.0-100.0); Mean Platelet Volume 7.3; Monocytes # (A) 0.8 k/uL (0-1.0); Monocytes % (A) 7 %; Neutrophils # (A) 8.4 k/uL (1.3-7.7); Neutrophils % (A) 71 %; Platelet Count 385 k/uL (150-450); RBC 5.17 m/uL (4.30-5.90); WBC 11.8 k/uL (3.8-10.6)
[2020-11-15 08:30] LABS: Albumin 5.4 g/dL (3.5-5.0); Calcium 10.8 mg/dL (8.4-10.2); Potassium 4.7 mmol/L (3.5-5.1); Total Bilirubin 1.4 mg/dL (0.2-1.3); Total Protein 8.5 g/dL (6.3-8.2)
[2020-11-15] MEDS ORDERED: ARIPiprazole 10 MG TAB PO SCH (09:00)
[2020-11-15] MEDS ORDERED: FLUoxetine HCL 20 MG CAP PO SCH (09:00)
--- NOTE | 2020-11-15 10:25 | P.PN ---
Progress Note - Text Progress Note Date: 11/15/20 Interval History: Patient was seen attending group and was directable and agreeable to speak with administrative underwriter in the office. Decreased and that he has been able to eat full meals. He feels less bloated. He reports that he realizes that suicide would only leave a lot of hurt from all those around him. He vehemently denies any suicidal or homicidal ideation, intention, and/or plan. He has been adherent with his medications and is not reporting any symptoms and side effects at this time. Review of the patient's metabolic panel revealed some irregularities including mild hyponatremia and an elevation in his BUN and creatinine. Collateral information was provided by the patient's outpatient psychiatric provider Dr. Atkins. Dr. Atkins reports that he has been doing really well on Vivactil for the past 3 years. The patient has been severely depressed exacerbated by ongoing psychosocial stressors. We discussed with the patient that we will transition back to a TCA such as Pamelor as Vavictil is not on formulary at this hospital. The patient does endorse some racing thoughts at bedtime. He did report it was difficult falling asleep but once he fell asleep it was good. Mental Status Exam: General Appearance: Patient appears to be stated age is alert, directable, and cooperative. Patient has a lesion on the bridge of his nose. Behavior: Patient is appropriately tearful during the interview. He is less tearful and emotional overall. Speech: Patient's speech is fluent and nonpressured. Speech is normal in volume. Mood/Affect: Mood is continues to depressed but better, affect is congruent and tearful. Suicidality/Homicidality: Patient denies having any suicidal or homicidal ideation intent or plan. Perceptions: Patient denies any auditory or visual hallucinations. Though content/process: There is no evidence of any delusional thought content and thought process is linear and goal-directed. Memory and concentration: AOX3, grossly intact for the purposes of this session Judgment and insight: Poor Assessment Major depressive disorder, recurrent, severe Plan: -Patient continues to meet criteria for inpatient psychiatric admission for symptom stabilization and safety. Patient has been petitioned and certified. The patient is at extremely high risk for suicide due to his age demographic, marital/ stressors, severity of the suicide attempt, male gender, and access to firearms. -Medications: We will discontinue Prozac at this time. We will start Pamelor 25 mg by mouth at bedtime for management of treatment resistant depression. Continue Abilify 10 mg but will move this medication to bedtime. -We will recheck the patient's comprehensive metabolic profile tomorrow. -When necessary Ativan and Haldol for agitation/aggression. -NRT - nicotine patch -SW on board for discharge planning. Encouraged the patient to participate in milieu.
[2020-11-15] MEDS: NORTRIPTYLINE 25 MG CAP PO SCH (20:59)
[2020-11-15] MEDS: ARIPiprazole 10 MG TAB PO SCH (21:00)
[2020-11-16] MEDS: hydroCHLOROthiazide 25 MG TAB PO SCH (07:25)
[2020-11-16] MEDS: LOSARTAN 50 MG TAB PO SCH ×2 (07:25→22:10)
[2020-11-16] MEDS: NICOTINE 14MG/24HR PATCH TRANSDERM SCH (07:27)
[2020-11-16 07:58] LABS: Albumin 5.2 g/dL (3.5-5.0); Calcium 10.2 mg/dL (8.4-10.2); Potassium 3.7 mmol/L (3.5-5.1); Total Bilirubin 1.3 mg/dL (0.2-1.3); Total Protein 8.3 g/dL (6.3-8.2)
[2020-11-16] MEDS: LORazepam 1 MG TAB PO PRN (08:07)
[2020-11-16] MEDS: amLODIPine 5 MG TAB PO SCH (08:58)
--- NOTE | 2020-11-16 09:31 | P.PN ---
Progress Note - Text Progress Note Date: 11/16/20 Interval History: Patient was seen attending group and was directable and agreeable to speak with casualty underwriter in the office. Patient has significant hyponatremia. He attributes this to his increased water intake which he states he has been doing because he felt that his urine smelled badly. He is endorsing some light-headedness but denies any other side effects. He reports that his depression and anxiety are improving. He is currently not reporting any suicidal or homicidal ideation, intention, and/or plan. He is denying any auditory or visual hallucinations. He is reporting no significant paranoia or delusions at this time. He has been attending groups. He denies any issues with appetite and states that he is able to sleep well last night. Mental Status Exam: General Appearance: Patient appears to be stated age is alert, directable, and cooperative. Patient has a lesion on the bridge of his nose. Behavior: Patient is calm and cooperative during the interview. Eye contact is good. Psychomotor activity appears normal. Speech: Patient's speech is fluent and nonpressured. Speech is normal in volume. Mood/Affect: Mood is is mildly improving, affect is constricted in range but congruent. Suicidality/Homicidality: Patient denies having any suicidal or homicidal ideation intent or plan. Perceptions: Patient denies any auditory or visual hallucinations. Though content/process: There is no evidence of any delusional thought content and thought process is linear and goal-directed. Memory and concentration: AOX3, grossly intact for the purposes of this session Judgment and insight: Improving Assessment Major depressive disorder, recurrent, severe Plan: -Patient continues to meet criteria for inpatient psychiatric admission for symptom stabilization and safety. The patient deferred mental health court on 11/15/2020. The patient is at extremely high risk for suicide due to his age demographic, marital/ stressors, severity of the suicide attempt, male gender, and access to firearms. -Medications: We will continue Pamelor 25 mg by mouth daily at bedtime for management of treatment resistant depression. We will hold on increasing this medication at this time due to concern for electrolyte abnormalities. Prozac has been disconti nued and may have been contributing to his hyponatremia. Continue Abilify 10 mg but will move this medication to bedtime. -Will consult internal medicine. -When necessary Ativan and Haldol for agitation/aggression. -NRT - nicotine patch -SW on board for discharge planning. Encouraged the patient to participate in milieu.
[2020-11-16] MEDS: NORTRIPTYLINE 25 MG CAP PO SCH (22:10)
[2020-11-16] MEDS: ARIPiprazole 10 MG TAB PO SCH (22:10)
[2020-11-17 07:15] VITALS: RESP 16
[2020-11-17] MEDS: LOSARTAN 50 MG TAB PO SCH ×2 (07:35→20:38)
[2020-11-17] MEDS: NICOTINE 14MG/24HR PATCH TRANSDERM SCH (07:35)
[2020-11-17] MEDS: amLODIPine 5 MG TAB PO SCH (07:35)
[2020-11-17 08:24] LABS: Albumin 5.2 g/dL (3.5-5.0); Calcium 10.1 mg/dL (8.4-10.2); Potassium 3.5 mmol/L (3.5-5.1); Total Bilirubin 1.6 mg/dL (0.2-1.3); Total Protein 8.2 g/dL (6.3-8.2)
[2020-11-17] MEDS: SODIUM CHLORIDE TAB 1 GM TAB PO SCH (09:18)
[2020-11-17] MEDS ORDERED: PNEUMOCOCCAL VACC-PNEUMOVAX 23 25 MCG/0.5 ML VIAL IM ONE (10:10)
[2020-11-17] MEDS ORDERED: INFLUENZA VACCINE (6 MOS+) 60 MCG/0.5 ML SYRINGE IM ONE (10:10)
--- NOTE | 2020-11-17 10:35 | P.PN ---
Progress Note - Text Progress Note Date: 11/17/20 Interval History: Patient was seen resting in bed and was directable and agreeable to speak with medical technical writer in the office. Patient continues to significant hyponatremia. His sodium decreased this morning from 124 to 120. He is currently not reporting any headache, muscle aches, lightheadedness, or nausea. He reported that he is feeling nauseous yesterday. He receives his sodium tablet this morning and his thiazide diuretic was held. The patient is reporting mild improvement in mood. He is not reporting any suicidal or homicidal ideation, intention, and/or plan today. He is not reporting any auditory or visual hallucinations. He becomes a little tearful when discussing the relationship with his daughter which is currently strained. The patient plans to make amends with his daughter as well as his ex-girlfriend upon discharge. He has been adherent with his medications and does not notice any significant side effects. Mental Status Exam: General Appearance: Patient appears to be stated age is alert, directable, and cooperative. Patient has a lesion on the bridge of his nose. Behavior: Patient is calm and cooperative during the interview. Eye contact is good. Psychomotor activity appears normal. Speech: Patient's speech is fluent and nonpressured. Speech is normal in volume. Mood/Affect: Mood is is mildly improving, affect is constricted in range but congruent. Appropriately tearful. Suicidality/Homicidality: Patient denies having any suicidal or homicidal ideation intent or plan. Perceptions: Patient denies any auditory or visual hallucinations. Though content/process: There is no evidence of any delusional thought content and thought process is linear and goal-directed. Memory and concentration: AOX3, grossly intact for the purposes of this session Judgment and insight: Improving Assessment Major depressive disorder, recurrent, severe Plan: -Patient continues to meet criteria for inpatient psychiatric admission for symptom stabilization and safety. The patient deferred mental health court on 11/15/2020. The patient is at extremely high risk for suicide due to his age demographic, marital/ stressors, severity of the suicide attempt, male gender, and access to firearms. -Medications: Tricyclic antidepressants such as Pamelor have a side effect of hyponatremia. As per recommendation of the internal medicine doctor, he would like to monitor his sodium for 1 more day. If there are no significant improvements in his electrolytes we will transfer the patient to the medical floor. The patient may need to be transitioned off Pamelor to another antidepressant. As a patient is a high risk for suicide, it would be unwise to have him without any antidepressant medication. We will continue Pamelor 25 mg by mouth at bedtime at this time. Continue Abilify 10 mg but will move this medication to bedtime. -When necessary Ativan and Haldol for agitation/aggression. -NRT - nicotine patch -SW on board for discharge planning. Encouraged the patient to participate in milieu.
--- NOTE | 2020-11-17 14:18 | PN ---
PROGRESS NOTE A 60-year-old white male who was admitted with severe depression, anxiety, suicidal ideations. He was found to have hyponatremia, which has continued to drop down to 120s, asymptomatic despite fluid restrictions down to 1200, his diuretic was stopped yesterday. We are awaiting further blood tests in the morning. If it is still low, we may have to admit him to the hospital and start him on a sodium tablet. Today otherwise vital signs are stable. He is medically stable. ASSESSMENT: 1. Hyponatremia. 2. Depression. 3. Anxiety. Unclear if one of the psych meds are causing hyponatremia as diuretic was stopped. Possibly we will have to readmit him in the hospital tomorrow to give him IV fluids if his sodium does not improve with fluid restriction and sodium tablets which were ordered today. MMODL / IJN: [id number] /
[2020-11-17 18:34] VITALS: TEMP 98.3
[2020-11-17] MEDS: ARIPiprazole 10 MG TAB PO SCH (20:39)
[2020-11-17] MEDS: NORTRIPTYLINE 25 MG CAP PO SCH (20:39)
[2020-11-18 05:56] VITALS: BP 137/75; PULSE 92
[2020-11-18 08:23] LABS: Albumin 4.6 g/dL (3.5-5.0); Calcium 9.9 mg/dL (8.4-10.2); Potassium 3.7 mmol/L (3.5-5.1); Total Protein 7.3 g/dL (6.3-8.2)
[2020-11-18] MEDS: amLODIPine 5 MG TAB PO SCH (08:27)
[2020-11-18] MEDS: SODIUM CHLORIDE TAB 1 GM TAB PO SCH (08:27)
[2020-11-18] MEDS: LOSARTAN 50 MG TAB PO SCH (08:27)
--- NOTE | 2020-11-18 10:07 | P.DS ---
Providers Date of admission: 11/11/20 03:22 Expected date of discharge: 11/18/20 Attending physician: López Yeboah MD Consults: 11/11/20 03:38 Consult Physician Routine Consulting Provider: Moncho Mcallister Consult Reason/Comments: H and P Do you want consulting provider notified?: Yes, Notify in am Primary care physician: Moncho Mcallister - Discharge Diagnosis(es) (1) Major depressive disorder, recurrent episode, severe Current Visit: Yes Status: Acute Hospital Course: Admission HPI: Patient presented to the hospital on 11/10/2020 escorted by police for suicidal thoughts and intent by overdose. The patient was petitioned and certified. As per petition, the patient overdosed on Xanax and while in the ambulance he stated that if his girlfriend did not call he would've shot himself. He is also been noted to have stolen his girlfriend's handgun. His daughter also filled out a petition for mental health and wrote down that the patient expressed feelings that he had no purpose and had been engaging in suicidal ideation and statements. He has overdosed on pills with intent to commit suicide. The patient reports that he has been feeling depressed since 4 years ago but this has significantly increased over the past few weeks. The patient reports that he is undergoing significant stress in regards to his father's estate that is in dispute with his sister. Furthermore, he states that his assets are also under litigation with his ex-. He expresses significant concern over these and his finances because he wants to provide for his daughter who plans to go to medical school in the future. The patient reports significant symptoms of depression including hopelessness, helplessness, excessive guilt, difficulty sleeping, and suicidal ideation. The patient reports that he has been planning to commit suicide over the past 2 weeks. He does admit that the overdose was an attempt to take his life. Furthermore, the patient reports to this provider that "Why did I not ?" He continues to endorse these suicidal thoughts. He is not reporting any homicidal ideation, intention, and/or plan. He is not reporting any history of auditory or visual hallucinations. In regards to ida/hypomania, the patient denies any history of increased goal-directed behavior, periods of excessive energy, or grandiosity. The patient reports that he has been in treatment for depression since 4 years ago during which she began having a relationship with his now ex-girlfriend Jessica. He states that this is the reason for the divorce. He states that he and his 4 years ago and that he was feeling excessive guilt for leaving his and daughter and that is why he sought treatment for depression. He states that his depression became very bad to the point that he quit his job. He began seeing Dr. Atkins for outpatient psychiatry. The lesvia ent states that he was tried on many different medications but cannot recall their names. Upon presentation to the hospital, the patient has been prescribed a regimen of Zoloft 200 mg by mouth daily, protriptyline 10 mg by mouth twice a day, Xanax, and Atarax for management of his severe depression and anxiety. The patient overdosed on the prescribed Xanax. Hospital course: Upon admission to the unit patient was initially very somnolent and unable to engage in the psychiatric interview due to the nature of his overdose. His home medications were held because of this. The following day, the patient was able to participate in the interview and displayed significant symptoms of depression. He endorsed suicidal ideation, hopelessness, helplessness, and frequent crying episodes in the context of his life stressors. The patient was agreeable and directable to commence treatment. The patient began attending groups and participated in milieu activities appropriately. Prozac was initi ally started to prevent discontinuation syndrome of his antidepressant medications as we awaited records from the patient's outpatient psychiatrist Dr Atkins. This provider spoke with Dr. Atkins at length who described that the patient did well with the trend cyclic antidepressant Vivactil. The patient was transitioned from Prozac to Pamelor as Vivactil is not on our formulary. The patient did endorse significant nausea even prior to the initiation of medications. He reported drinking a lot of water because he also felt that his urine smelled. The patient displayed significant electrolyte abnormalities, and of concern, was his hyponatremia. Medicine is made aware and changed his hypertensive medication, started a sodium tablet, and recommended fluid restriction. Due to the hyponatremia, the patient's Pamelor was not titrated any further. Despite this, the patient expressed significant improvement in mood and future orientation. He expressed that he realizes that he reached a r ock bottom and that he has to make the necessary changes in his life which include following up with therapy, his outpatient psychiatry appointments, as well as working on his relationships with his daughter and ex-girlfriend. This provider discussed at length that he needs to temper his expectations from others should he find himself disappointed with how they may receive him. Of concern as well, the patient did express that he threw a firearm out the window of his vehicle. He provided a location for the firearm which was then relayed by this treatment team to the police. He denies any current access to firearms or other weapons. He states that he doesn't own shotguns but these are in the custody of his ex-girlfriend Jessica, and are currently locked away in a safe which he does not have the veras to. On the day of discharge, the patient is not reporting any suicidal or homicidal ideation, intention, and/or plan. He is not reporting any auditory or visual hallucinations. He remains more future oriented. He expresses that he was to feel suicidal, he would contact crisis numbers, "emergency department, and seek help. The patient's hyponatremia continues to be present but is trending towards normal. The patient is not reporting any medical issues at this time. He denies any lightheadedness, headache, confusion, muscle aches, or malaise. The patient was counseled on substance abuse and was recommended to discontinue using alcohol. Prior to discharge, a family meeting will take place with the therapy staff and the family to determine safe discharge planning. Mental status exam: General Appearance: Patient appears to be stated age is alert, pleasant, and cooperative. Patient is in no acute distress and has fair hygiene and grooming Behavior: Patient is calmly seated without any agitated behavior. Speech: Patient's speech is fluent and nonpressured. Mood/Affect: Patient reports their mood is "much better", affect is congruent and euthymic. Suicidality/Homicidality: Patient denies having any suicidal or homicidal ideation intent or plan. Perceptions: Patient denies any auditory or visual hallucinations. Though content/process: There is no evidence of any delusional thought content and thought process is linear and goal-directed. Patient is future oriented. Memory and concentration: AOX3, grossly intact for the purposes of this session. Can spell "WORLD" backwards correctly. Judgment and insight: Improved with guarded prognosis Impression: Major depressive disorder, recurrent, severe Plan: -Continue with discharge today as patient has improved and stabilized psychiatrically and is not currently an imminent threat to himself and/or others. Patient will remain at chronically elevated risk for harm to self and/or others due to his on modifiable risk factors including age, male gender, divorce, and prior suicide attempt. -Continue medications: Pamelor 25 mg by mouth at bedtime for depression. Medication could not be titrated further to hyponatremia. We discussed at length with the patient that he may transition back to Vivactil by his outpatient psychiatrist. Abilify 10 mg by mouth daily for mood augmentation -Patient was counseled on the need for medication compliance and appropriate follow-up at mental health and also primary care for medical issues. Patient verbalized understanding and agreed. -Social work to arrange for and conduct family meeting to ensure safety upon discharge and answer any questions/concerns. Social work also to arrange for patients follow up appointments Dr. Atkins for psychiatric care along with follow up with primary care provider. -Patient counseled on abstaining from recreational drugs and marijuana and alcohol. Was informed/educated on the adverse effects on their physical and mental health. Patient verbally agreed and understood. -Patient was instructed to return to the hospital or seek immediate medical care if their psychiatric or medical symptoms do worsen or reoccur. -Psychoeducation and supportive therapy provided to patient. Risks and benefits of pharmacological treatment versus the risks and benefits of nontreatment weight and discussed. Informed consent discussion held. Common side effects of psychotropics discussed such as, but not limited to headache, GI disturbance, sexual dysfunction, movement disorders, sedation, and orthostatic hypotension. Life threatening and blackbox warnings of prescribed medications also discussed. Potential risks of operating a vehicle or heavy machinery discussed with patient at length. Advised on importance of compliance and a reliable and responsible manner. Patient advised to review FDA consumer labeling of all medications prior to taking. Patient verbalized understanding of potential risks, and agrees with current treatment plan. Patient advised to medically contact physician/emergency personnel if any acute changes in condition occur. Vital Signs Temp 98.3 F 11/18/20 05:39 Pulse 92 11/18/20 05:39 Resp 16 11/18/20 05:39 BP 137/75 11/18/20 05:39 Pulse Ox 98 11/16/20 12:46 Intake & Output 11/17/20 11/18/20 11/18/20 18:59 06:59 18:59 Weight 83.121 kg Laboratory Results WBC 11.8 k/uL (3.8-10.6) H 11/15/20 06:45 RBC 5.17 m/uL (4.30-5.90) 11/15/20 06:45 Hgb 16.3 gm/dL (13.0-17.5) 11/15/20 06:45 Hct 48.7 % (39.0-53.0) 11/15/20 06:45 MCV 94.1 fL (80.0-100.0) 11/15/20 06:45 MCH 31.5 pg (25.0-35.0) 11/15/20 06:45 MCHC 33.5 g/dL (31.0-37.0) 11/15/20 06:45 RDW 12.0 % (11.5-15.5) 11/15/20 06:45 Plt Count 385 k/uL (150-450) 11/15/20 06:45 MPV 7.3 11/15/20 06:45 Neutrophils % 71 % 11/15/20 06:45 Lymphocytes % 20 % 11/15/20 06:45 Monocytes % 7 % 11/15/20 06:45 Eosinophils % 0 % 11/15/20 06:45 Basophils % 0 % 11/15/20 06:45 Neutrophils # 8.4 k/uL (1.3-7.7) H 11/15/20 06:45 Lymphocytes # 2.4 k/uL (1.0-4.8) 11/15/20 06:45 Monocytes # 0.8 k/uL (0-1.0) 11/15/20 06:45 Eosinophils # 0.0 k/uL (0-0.7) 11/15/20 06:45 Basophils # 0.0 k/uL (0-0.2) 11/15/20 06:45 Sodium 125 mmol/L (137-145) L 11/18/20 07:13 Potassium 3.7 mmol/L (3.5-5.1) 11/18/20 07:13 Chloride 86 mmol/L (98-107) L 11/18/20 07:13 Carbon Dioxide 31 mmol/L (22-30) H 11/18/20 07:13 Anion Gap 8 mmol/L 11/18/20 07:13 BUN 16 mg/dL (9-20) 11/18/20 07:13 Creatinine 1.10 mg/dL (0.66-1.25) 11/18/20 07:13 Est GFR (CKD-EPI)AfAm 84 (>60 ml/min/1.73 sqM) 11/18/20 07:13 Est GFR (CKD-EPI)NonAf 73 (>60 ml/min/1.73 sqM) 11/18/20 07:13 Glucose 106 mg/dL (74-99) H 11/18/20 07:[address] Glu mg/dL 111 11/12/20 07:19 Hemoglobin A1c 5.5 % (4.0-6.0) 11/12/20 07:19 Calcium 9.9 mg/dL (8.4-10.2) 11/18/20 07:13 Total Bilirubin 1.0 mg/dL (0.2-1.3) 11/18/20 07:13 AST 30 U/L (17-59) 11/18/20 07:13 ALT 30 U/L (4-49) 11/18/20 07:13 Alkaline Phosphatase 57 U/L (38-126) 11/18/20 07:13 Total Protein 7.3 g/dL (6.3-8.2) 11/18/20 07:13 Albumin 4.6 g/dL (3.5-5.0) 11/18/20 07:13 Triglycerides 450 mg/dL (<150) H 11/12/20 07:19 Cholesterol 235 mg/dL (<200) H 11/12/20 07:19 LDL Cholesterol, Calc mg/dL (0-99) 11/12/20 07:19 HDL Cholesterol 45 mg/dL (40-60) 11/12/20 07:19 Lipase 113 U/L (23-300) 11/13/20 20:02 TSH 2.860 mIU/L (0.465-4.680) 11/12/20 07:19 Salicylates <1.0 mg/dL 11/10/20 22:53 Urine Opiates Screen Not Detected (NotDetected) 11/10/20 22:53 Ur Oxycodone Screen Not Detected (NotDetected) 11/10/20 22:53 Urine Methadone Screen Not Detected (NotDetected) 11/10/20 22:53 Ur Propoxyphene Screen Not Detected (NotDetected) 11/10/20 22:53 Acetaminophen <10.0 ug/mL 11/10/20 22:53 Ur Barbiturates Screen Not Detected (NotDetected) 11/10/20 22:53 U Tricyclic Antidepress Not Detected (NotDetected) 11/10/20 22:53 Ur Phencyclidine Scrn Not Detected (NotDetected) 11/10/20 22:53 Ur Amphetamines Screen Not Detected (NotDetected) 11/10/20 22:53 U Methamphetamines Scrn Not Detected (NotDetected) 11/10/20 22:53 U Benzodiazepines Scrn Detected (NotDetected) H 11/10/20 22:53 Urine Cocaine Screen Not Detected (NotDetected) 11/10/20 22:53 U Marijuana (THC) Screen Not Detected (NotDetected) 11/10/20 22:53 Serum Alcohol <10 mg/dL 11/10/20 22:53 Coronavirus (PCR) Not Detected (Not Detectd) 11/11/20 03:04 Allergies Allergy/AdvReac Type Severity Reaction Status Date / Time acetaminophen From Vicodin Allergy Rash/Hives Verified 11/10/20 22:58 hydrocodone From Vicodin Allergy Rash/Hives Verified 11/10/20 22:58 Penicillins Allergy Swelling Verified 11/10/20 22:58 Patient Condition at Discharge: Stable Plan - Discharge Summary Discharge Rx Participant: Yes New Discharge Prescriptions: New ARIPiprazole [Abilify] 10 mg PO HS 30 Days tab Losartan [Cozaar] 150 mg PO BID 30 Days tab amLODIPine [Norvasc] 5 mg PO DAILY 30 Days tab Nortriptyline [Pamelor] 25 mg PO HS 30 Days cap Sodium Chloride Tab 1 gm PO DAILY 3 Days tab Changed hydrOXYzine HCL [Atarax] 25 mg PO TID PRN 30 Days tab PRN Reason: Anxiety Discontinued Olmesartan/Hydrochlorothiazide [Benicar Hct 40-25 mg Tablet] 1 tab PO BID ALPRAZolam [Xanax] 0.5 mg PO QID PRN PRN Reason: Anxiety ALPRAZolam [ALPRAZolam XR] 2 mg PO BID PRN PRN Reason: Anxiety Sertraline [Zoloft] 200 mg PO DAILY Protriptyline HCl [Vivactil] 10 mg PO BID Plexus Bio-Cleanse 2 cap PO DAILY Discharge Medication List ARIPiprazole [Abilify] 10 mg PO HS 30 Days tab 11/18/20 [Rx] Losartan [Cozaar] 150 mg PO BID 30 Days tab 11/18/20 [Rx] Nortriptyline [Pamelor] 25 mg PO HS 30 Days cap 11/18/20 [Rx] Sodium Chloride Tab 1 gm PO DAILY 3 Days tab 11/18/20 [Rx] amLODIPine [Norvasc] 5 mg PO DAILY 30 Days tab 11/18/20 [Rx] hydrOXYzine HCL [Atarax] 25 mg PO TID PRN 30 Days tab 11/18/20 [Rx] Follow up Appointment(s)/Referral(s): Moncho Mcallister MD [Primary Care Provider] - 1-2 days Moncho Atkins MD [REFERRING] - 11/23/20 8:15 am Activity/Diet/Wound Care/Special Instructions: Activity and diet as tolerated. Avoid the use of street drugs and alcohol. Take all medications as prescribed. When you are in need of refills on your medications please contact your medical provider and/or outpatient psychiatrist to have this done. Please go to scheduled outpatient appointment for aftercare treatment. If symptoms return or become worse, call the crisis line at and/or go to the nearest emergency room for evaluation. Discharge Disposition: HOME SELF-CARE
== END 2020-11-18 14:25 | disposition home or self-care (01) | DRG 885 ==
LOC: EC 21:34 → 3MHU 11-11 03:22
PROVIDERS: ADMIT Psychiatry & Neurology Psychiatry; ATTEND Psychiatry & Neurology Psychiatry
DX: F33.2 Major depressive disorder, recurrent severe without psychotic features (principal); E87.1 Hypo-osmolality and hyponatremia; F41.9 Anxiety disorder, unspecified; G47.30 Sleep apnea, unspecified; I10 Essential (primary) hypertension; T42.4X2A Poisoning by benzodiazepines, intentional self-harm, initial encounter; Z79.899 Other long term (current) drug therapy; Z80.7 Family history of other malignant neoplasms of lymphoid, hematopoietic and related tissues; Z91.5 Personal history of self-harm; Z20.822 Contact with and (suspected) exposure to COVID-19; Z88.6 Allergy status to analgesic agent; Z88.5 Allergy status to narcotic agent; Z88.0 Allergy status to penicillin; Z63.5 Disruption of family by separation and divorce
CPT/HCPCS: 36415; 74018; 80053; 80061; 80143; 80306; 80320; 82075; 83036; 83520; 83690; 84443; 85025; 87635; 90686; 90732; 93005

== ENCOUNTER → 2020-12-15 | Outpatient (CLI) | payer OTHER ==
[2020-12-15 10:31] LABS: HCT 41.9 % (39.6-50.0); HGB 13.7 g/dL (13.0-17.0); MCH 30.6 pg (27.0-32.0); MCHC 32.7 g/dL (32.0-37.0); MCV 93.5 fL (80.0-97.0); Neutrophils % (A) 62.6 %; Platelet Count 392 X 10*3/uL (140-440); RBC 4.48 X 10*6/uL (4.40-5.60); WBC 6.74 X 10*3/uL (4.50-10.00)
[2020-12-15 10:32] LABS: Basophils # (A) 0.03 X 10*3/uL (0.00-0.10); Basophils % (A) 0.4 %; Eosinophils # (A) 0.15 X 10*3/uL (0.04-0.35); Eosinophils % (A) 2.2 %; Lymphocytes # (A) 1.95 X 10*3/uL (0.90-5.00); Lymphocytes % (A) 28.9 %; Monocytes # (A) 0.37 X 10*3/uL (0.20-1.00); Monocytes % (A) 5.5 %; Neutrophils # (A) 4.21 X 10*3/uL (1.80-7.70)
[2020-12-15 11:28] LABS: ALT 33 U/L (10-49); AST 22 U/L (14-35); African American GFR (CKD) 68.7 (60.0-200.0); Albumin/Globulin Ratio 2.53 (1.60-3.17); Alkaline Phosphatase 56 U/L (41-126); Bilirubin, Conjugated <0.20 mg/dL (0.20-0.40); Chol/HDL Ratio 3.38; Cholesterol 179 mg/dL (0-200); Globulin 1.9 g/dL (1.6-3.3); Glucose 115 mg/dL (70-110); LDL Cholesterol,Calculated 97.8 mg/dL (0.0-131.0); Non-African American GFR(CKD) 59.3 (60.0-200.0); Total Bilirubin 0.4 mg/dL (0.3-1.2); Total Protein 6.7 g/dL (6.2-8.2)
[2020-12-15 11:47] LABS: Prolactin 2.4 ng/mL (2.1-17.7)
== END | disposition home or self-care (01) ==
LOC: LABWHC1 07:02
PROVIDERS: ATTEND Psychiatry & Neurology Psychiatry
DX: Z51.81 Encounter for therapeutic drug level monitoring (principal); Z79.899 Other long term (current) drug therapy
CPT/HCPCS: 36415; 80061; 80076; 82306; 82565; 82947; 83036; 84146; 84439; 84443; 84520; 85025

== ENCOUNTER → 2022-09-05 | Outpatient (CLI) | payer MEDICARE ==
[2022-09-05 14:33] LABS: Basophils # (A) 0.03 X 10*3/uL (0.00-0.10); Basophils % (A) 0.4 %; Eosinophils # (A) 0.02 X 10*3/uL (0.04-0.35); Eosinophils % (A) 0.3 %; HCT 38.9 % (39.6-50.0); HGB 13.6 g/dL (13.0-17.0); Immature Grans, Automated 0.8 %; Lymphocytes % (A) 16.9 %; MCV 91.5 fL (80.0-97.0); Mean Platelet Volume 9.5 fL (9.5-12.2); Monocytes % (A) 6.5 %; NRBC Per 100 WBC 0 /100 WBCS (0.0-0.0); Neutrophils % (A) 75.1 %; Platelet Count 403 X 10*3/uL (140-440); RBC 4.25 X 10*6/uL (4.40-5.60); RDW 11.8 % (11.5-14.5); WBC 7.71 X 10*3/uL (4.50-10.00)
== END | disposition home or self-care (01) ==
LOC: LABPAT 09:43
PROVIDERS: ATTEND Orthopaedic Surgery Hand Surgery
DX: Z01.812 Encounter for preprocedural laboratory examination (principal); G56.01 Carpal tunnel syndrome, right upper limb
CPT/HCPCS: 85025; 93005

== ENCOUNTER 2022-09-19 07:08 | Day surgery (SDC) | payer MEDICARE, OTHER ==
[2022-09-17 11:10] VITALS: BMI 23.3
--- NOTE | 2022-09-18 19:26 | P.HPOR ---
History of Present Illness H&P Date: 09/18/22 Chief Complaint: Left carpal tunnel syndrome Subjective: This is a 62 year old male that presents today for initial evaluation regarding a several year history of worsening left thumb, index, middle and ring finger numbness and soreness at the base of the left thumb. He denies any injury, he has tried splinting with little relief. He has pain with pinch and grasp while working with tools. Physical Examination: LUE: AIN/PIN/Radial/Ulnar/Median motor intact. Radial/Ulnar/Median SILT. 2+/4 Radial/Ulnar pulses palpated. 5/5 APB, 5/5 FDI. Negative Finkelsteins, positive CMC grind, positive Durkan's compression. Imaging: X-Rays of the left hand demonstrate advanced arthritis at the thumb CMC joint. Impression: 1.) Left carpal tunnel syndrome 2.) Left thumb CMC arthritis Plan: Diagnosis and treatment options were discussed with the patient. He would like to go forward with left endoscopic vs. open carpal tunnel release. Details regarding thumb CMC surgery were discussed and he would like to hold off on the surgery until after his winter trips are completed. Risks and benefits of surgery including bleeding, infection, damage to surrounding tissue, need for further surgery, possible need to convert to open procedure, residual numbness were discussed and the patient wished to go forward with surgery. -Deangelo Brito DO Orthopedic Hand/Upper Extremity Surgeon Past Medical History Past Medical History: Cancer, Hypertension Additional Past Medical History / Comment(s): PROSTATE CANCER History of Any Multi-Drug Resistant Organisms: None Reported Past Surgical History: Hernia Repair, Tonsillectomy Additional Past Surgical History / Comment(s): NASAL SX X3, colonoscopy, Past Anesthesia/Blood Transfusion Reactions: No Reported Reaction Smoking Status: Never smoker - Past Family History Father Family Medical History: Cancer Additional Family Medical History / Comment(s): LYMPHOMA Medications and Allergies Home Medications Medication Instructions Recorded Confirmed Type Olmesartan/Hydrochlorothiazide 1 each PO DAILY 09/17/22 09/17/22 History [Benicar Hct 40-25 mg Tablet] buPROPion HCL [buPROPion HCL XL] 300 mg PO DAILY 09/17/22 09/17/22 History busPIRone HCl [Buspar] 5 mg PO DAILY 09/17/22 09/17/22 History lamoTRIgine [LaMICtal] 200 mg PO DAILY 09/17/22 09/17/22 History traZODone HCL 150 mg PO HS 09/17/22 09/17/22 History Allergies Allergy/AdvReac Type Severity Reaction Status Date / Time acetaminophen [From Vicodin] Allergy Rash/Hives Verified 09/17/22 10:58 hydrocodone [From Vicodin] Allergy Rash/Hives Verified 09/17/22 10:58 Penicillins Allergy Swelling Verified 09/17/22 10:58 Physical Examination Osteopathic Statement: *. No significant issues noted on an osteopathic structural exam other than those noted in the History and Physical/Consult.
[~2022-09-19 07:08] MED LIST changes: -LACTATED RINGERS 1,000 ML IV SCH; +Pre Op ABX Message 1 EACH MISC MISCELLANE ONE
[2022-09-19] MEDS ORDERED: ONDANSETRON 4 MG/2 ML VIAL IVP ONE (07:13)
[2022-09-19] MEDS ORDERED: LIDOCAINE 1% (10MG/ML) FOR IV START INTRADERMA PRN (07:13)
[2022-09-19] MEDS ORDERED: MIDAZOLAM 2 MG/2 ML VIAL IV PRN (07:13)
[2022-09-19] MEDS ORDERED: LACTATED RINGERS 1,000 ML IV SCH (07:13)
[2022-09-19] MEDS ORDERED: HYDROmorphone 0.5 MG/0.5 ML SYRINGE IVP PRN (07:13)
[2022-09-19] MEDS ORDERED: DEXAMETHASONE SOD PHOSPHATE 4 MG/ML 1 ML VIAL IV ONE (07:13)
[2022-09-19 07:51] VITALS: TEMP 97.9
[2022-09-19 08:20] LABS: Glucose,Whole Blood 113 mg/dL (70-110)
[2022-09-19] MEDS ORDERED: fentaNYL (PF) 50 MCG/ML 2 ML AMP ONE (08:20)
[2022-09-19] MEDS ORDERED: MIDAZOLAM 2 MG/2 ML VIAL ONE (08:20)
[2022-09-19] MEDS ORDERED: PROPOFOL 10 MG/ML 20 ML VIAL IV ONE (08:20)
[2022-09-19] MEDS ORDERED: BUPIVACAINE (PF) 0.5% 30 ML VIAL SQ ONE (08:30)
--- NOTE | 2022-09-19 08:57 | P.OP ---
Date of Procedure: 09/19/22 Preoperative Diagnosis: Left carpal tunnel syndrome Postoperative Diagnosis: Left carpal tunnel syndrome Procedure(s) Performed: Left endoscopic carpal tunnel release Anesthesia: MAC Surgeon: Deangelo Brito Estimated Blood Loss (ml): 0 Pathology: none sent Condition: stable Disposition: PACU Description of Procedure: This is a 62 year old male who presents today for a left endoscopic carpal tunnel release after having failed conservative treatment in the past. Risks and benefits of surgery were discussed with the patient including bleeding, damage to surrounding tissue, infection, need to convert to open procedure, need for further surgery as well as risks of anesthesia including pulmonary embolism and even and the patient wished to proceed with surgical intervention. The patients was seen in the pre-operative area by myself. Consent and H&P were completed and updated. The correct extremity was marked in the pre-operative area by myself and all other questions were answered. Operative Narrative: The patient was brought to the operating room by the department of anesthesia. They remained on the portable stretcher and a rolling hand table was brought to the side of the operative extremity. Pre-operative time out was performed indicating the correct patient, procedure and laterality. All in the room agreed. The patient was then drifted off to sleep by the department of anesthesia. MAC anesthesia was utilized and a 50:50 mixture of 1% Lidocaine and 0.5% bupivacaine was injected into the subcutaneous tissues of the palmar skin, 8ccs total. A nonsterile tourniquet was then applied to the operative extremity and the left upper extremity was then prepped and draped in normal sterile fashion. The operative extremity was the exsanguinated with an esmarch bandage and the tourniquet was inflated to 250mmHg. 15 blade scalpel was utilized to make a transverse incision on the palmar skin just ulnar to the palmaris longus tendon at the level of the distal wrist crease. Ragnell retractor was then placed radially and blunt dissection was performed to reveal the distal forearm fascia. This was lifted with fine Casey pick ups and Littler tenotomy scissors were then used to open the forearm fascia transversely and a double skin hook was then placed. Hamate finder was placed into the carpal tunnel and then sequential sized dilators were inserted followed by the synovial elevator to separate the flexor tenosynovium from the undersurface of the transverse carpal ligament and a washboard texture was felt. The Micro[employer]ire endoscopic carpal tunnel release system gun was the then inserted into the carpal tunnel hugging the deep portion of the transverse carpal ligament in line with the base of the ring finger. Transverse fibers of the ligament were directly visualized. Pressure was applied on the palm to reveal the distal extent of the transverse carpal ligament. The blade was then deployed and the distal half of the transverse carpal ligament was released. The scope was then brought distal again and remaining transverse fibers were incised with the blade. The proximal half of the transverse carpal ligament was then divided and again the scope was advanced distal and remaining transverse fibers were incised with the blade. The radial and ulnar leaflets were directly visualized and mobile consistent with complete release. Tenotomy scissors were then utilized to release the remaining distal forearm fascia under direct visualization taking care to preserve the palmar cutaneous branch of the median nerve. Skin closure was performed with interrupted 4-0 Monocryl suture followed by Mastisol and steri strips. Sterile dressing was applied consisting of adaptic, 4x4s, Webril, and an veronica bandage. Tourniquet was let down and the hand immediately was well perfused. The patient was then woken by the department of anesthesia and transferred to PACU in stable condition. Deangelo Brito D.O. Orthopedic Hand/Upper Extremity Surgeon
[2022-09-19 09:17] VITALS: RESP 16
[2022-09-19 09:18] VITALS: BP 102/50; PULSE 72
== END 2022-09-19 09:32 | disposition home or self-care (01) ==
LOC: OR 07:08
PROVIDERS: ATTEND Orthopaedic Surgery Hand Surgery
DX: G56.02 Carpal tunnel syndrome, left upper limb (principal); I10 Essential (primary) hypertension; Z85.46 Personal history of malignant neoplasm of prostate; Z90.49 Acquired absence of other specified parts of digestive tract; Z90.89 Acquired absence of other organs; Z80.7 Family history of other malignant neoplasms of lymphoid, hematopoietic and related tissues; Z79.899 Other long term (current) drug therapy; Z88.5 Allergy status to narcotic agent; Z88.0 Allergy status to penicillin
CPT/HCPCS: 29848; J2250; J1100; J2405; J3010; J2704

== ENCOUNTER → 2022-10-10 | Outpatient (CLI) | payer MEDICARE ==
--- NOTE | 2022-10-11 08:55 | MR ---
EXAMINATION TYPE: MR Prostate wo/w con DATE OF EXAM: 10/10/2022 8:24 AM COMPARISON: 09/05/2020, 09/09/2018, prostate ultrasounds in 2017. CLINICAL INDICATION:Male, 62 years old with history of C61 PROSTATE CANCER; TECHNIQUE: Multi-planar, multi-sequence imaging of the pelvis is performed prior to and following the uncomplicated administration of bolus intravenous gadolinium. CONTRAST: 7 Gadavist Interpretive Criteria: PI-RADS v2.1 SERUM PSA: 8.3 on 07/11/2022 SURGICAL PATHOLOGY: No data available. FINDINGS: Prostatic dimensions: 5.0 x 4.2 x 3.4 cm. "Bullet" Volume: 46.73 (PSA density=0.18 ng/mL/mL) CENTRAL GLAND (Central and Transition Zones/CZ+TZ): Heterogenous appearing hypertrophic stromal nodules, without suspicious lesion. (PI-RADS 2) PERIPHERAL ZONE (PZ): PI-RADS 5 lesion in the left peripheral zone mid gland and apex measuring up to 2.1 x 1.7 cm demonstr ating diffusion restriction and low T2 signal. There is postcontrast enhancement of this region. PI-R ADS 5 SEMINAL VESICLES (SV): Diffusely collapse or atrophic, bilaterally. PERIPROSTATIC TISSUES: Unremarkable. LYMPH NODES: No enlarged pelvic lymph node. REMAINING PELVIS: Trabeculated bladder wall. No abnormal free or organized intrapelvic fluid collection. No pathologic bowel dilation or mural thickening. Right epididymal cyst measuring up to 1.5 cm and trace bilateral hydroceles. OSSEOUS STRUCTURES: No suspicious osseous abnormality. IMPRESSION: 1. BI-RADS 5 lesion in the left peripheral zone mid gland and apex. New from 09/05/2020 2. No suspicious osseous lesion. No lymphadenopathy. No evidence of prostate adenocarcinoma involving the periprostatic tissues.
== END | disposition home or self-care (01) ==
LOC: RADMRIMAIN 07:19
PROVIDERS: ATTEND Urology
DX: C61 Malignant neoplasm of prostate (principal); N41.0 Acute prostatitis; N42.89 Other specified disorders of prostate
CPT/HCPCS: 72197; A9585

== ENCOUNTER 2023-01-24 09:40 | Day surgery (SDC) | payer MEDICARE, OTHER ==
[2023-01-21 17:17] VITALS: BMI 23.9
[~2023-01-24 09:40] MED LIST changes: +LIDOCAINE 1% (10MG/ML) FOR IV START INTRADERMA PRN; +ONDANSETRON 4 MG/2 ML VIAL IVP PRN; -Pre Op ABX Message 1 EACH MISC MISCELLANE ONE; +fentaNYL (PF) 50 MCG/ML 2 ML AMP IV PRN
[2023-01-24 10:11] VITALS: TEMP 97.3
[2023-01-24] MEDS: LACTATED RINGERS 1,000 ML IV SCH ×2 (10:21→11:43)
[2023-01-24] MEDS: GENTAMICIN 110 MG in SODIUM CHLORIDE 0.9% 100 ML IVPB PRN ×2 (10:29→11:43)
--- NOTE | 2023-01-24 11:31 | P.GSHP ---
History of Present Illness H&P Date: 01/24/23 Chief Complaint: Prostate cancer The patient is a 62-year-old white male initially diagnosed with prostate cancer in October 2017. His PSA level at that time was 3.5-5. He has been managed with active surveillance. His PSA level in September 2022 was 7.80. MRI in October 2022 showed a prostate volume of 46.7 mL, with a pie rad 5 lesion noted within the left peripheral zone. This was not seen on prior MRI in September 2020. However, this is the site where cancer was initially diagnosed in 2016. The prostate is palpably normal. - Genitourinary (Male) Genitourinary: Reports nocturia Past Medical History Past Medical History: Hypertension, Sleep Apnea/CPAP/BIPAP Additional Past Medical History / Comment(s): inguinal hernia - left side. NO CPAP USE History of Any Multi-Drug Resistant Organisms: None Reported Past Surgical History: Hernia Repair, Orthopedic Surgery, Tonsillectomy Additional Past Surgical History / Comment(s): NASAL SX X3, colonoscopy, LEFT CARPAL TUNNEL REPAIR, RIGHT MENISCUS REPAIR Past Anesthesia/Blood Transfusion Reactions: No Reported Reaction Past Psychological History: Depression Smoking Status: Never smoker Past Alcohol Use History: Occasional Past Drug Use History: None Reported - Past Family History Father Family Medical History: Cancer Additional Family Medical History / Comment(s): LYMPHOMA Medications and Allergies Home Medications Medication Instructions Recorded Confirmed Type Olmesartan/Hydrochlorothiazide 1 each PO DAILY 09/17/22 01/24/23 History [Benicar Hct 40-25 mg Tablet] buPROPion HCL [buPROPion HCL XL] 300 mg PO DAILY 09/17/22 01/24/23 History busPIRone HCl [Buspar] 5 mg PO DAILY 09/17/22 01/24/23 History lamoTRIgine [LaMICtal] 200 mg PO DAILY 09/17/22 01/24/23 History traZODone HCL 150 mg PO HS 09/17/22 01/24/23 History Allergies Allergy/AdvReac Type Severity Reaction Status Date / Time hydrocodone [From Vicodin] Allergy Rash/Hives Verified 01/24/23 09:59 Penicillins Allergy Swelling Verified 01/24/23 09:59 Surgical - Exam Vital Signs Temp Pulse Resp BP Pulse Ox 97.3 F L 72 18 126/72 98 01/24/23 10:08 01/24/23 10:08 01/24/23 10:08 01/24/23 10:08 01/24/23 10:08 - General well developed, well nourished, no distress - Neck no masses, trachea midline - Respiratory normal respiratory effort - Abdomen Abdomen: soft, non tender, no guarding, no rigid, no rebound - Genitourinary normal penis with no external lesions, testicles non-tender - Rectum Rectum: normal sphincter tone, no masses, other (Prostate mildly enlarged but smooth) - Psychiatric oriented to time, oriented to person, oriented to place, speech is normal, memory intact Assessment and Plan (1) Malignant neoplasm of prostate Current Visit: Yes Status: Acute Code(s): C61 - MALIGNANT NEOPLASM OF PROSTATE SNOMED Code(s): 435514380 Plan: The patient will undergo MRI-Ultrasound fusion transrectal biopsies of the prostate. The procedure has been reviewed in detail with the patient. He has been made aware of potential risks, which include anesthesia, bleeding, and infection. He is also aware that a negative biopsy does not completely rule out prostate cancer.
[2023-01-24] MEDS ORDERED: MIDAZOLAM 2 MG/2 ML VIAL ONE (11:44)
[2023-01-24] MEDS ORDERED: PROPOFOL 10 MG/ML 20 ML VIAL IV ONE (11:44)
[2023-01-24] MEDS ORDERED: SODIUM CHLORIDE 0.9% 100 ML BAG ONE (11:44)
[2023-01-24] MEDS ORDERED: fentaNYL (PF) 50 MCG/ML 2 ML AMP ONE (11:44)
[2023-01-24] MEDS ORDERED: ceFAZolin 1,000 MG VIAL ONE (11:44)
[2023-01-24] MEDS ORDERED: PHENYLEPHRINE-0.9% NACL SYG 1,000 MCG/10 ML SYRINGE ONE (11:44)
--- NOTE | 2023-01-24 12:08 | P.OP ---
Date of Procedure: 01/24/23 Preoperative Diagnosis: Adenocarcinoma of the prostate Postoperative Diagnosis: Same Procedure(s) Performed: MRI ultrasound fusion transrectal biopsies of the prostate Anesthesia: MAC Surgeon: Amor Garcia Estimated Blood Loss (ml): 0 IV fluids (ml): 200 Pathology: other (Prostate biopsies) Condition: stable Disposition: PACU Indications for Procedure: The patient is a 62-year-old white male initially diagnosed with prostate cancer in October 2017. His PSA level at that time was 3.5-5. He has been managed with active surveillance. His PSA level in September 2022 was 7.80. MRI in October 2022 showed a prostate volume of 46.7 mL, with a pie rad 5 lesion noted within the left peripheral zone. This was not seen on prior MRI in September 2020. However, this is the site where cancer was initially diagnosed in 2016. The prostate is palpably normal. Operative Findings: 12 template biopsies sent. 3 biopsies sent from target area, left peripheral zone apex. Description of Procedure: The patient was taken to the operating room and placed in the left lateral decubitus position. The ANPI transrectal ultrasound probe was placed intrarectally. It was then placed within the stand of the [employer] MRI/TRUS Fusion for Prostate Biopsy system. The prostate was imaged in both the axial and sagittal planes, revealing a prostate volume of 40 mL. Using the Biopty gun, 3 biopsies were obtained from the target lesion within the left peripheral zone at the apex. The remaining 12 biopsies of the peripheral zone were obtained utilizing a standard template. Once the procedure was completed, the ultrasound probe was removed. The patient tolerated the procedure well was taken to the recovery room stable condition.
[2023-01-24 12:33] VITALS: PULSE 83
[2023-01-24 12:45] VITALS: BP 94/57; RESP 17
== END 2023-01-24 13:00 | disposition home or self-care (01) ==
LOC: OR 09:40
PROVIDERS: ATTEND Urology
DX: C61 Malignant neoplasm of prostate (principal); R97.20 Elevated prostate specific antigen [PSA]; I10 Essential (primary) hypertension; G47.30 Sleep apnea, unspecified; F32.A Depression, unspecified; Z85.46 Personal history of malignant neoplasm of prostate; Z90.89 Acquired absence of other organs; Z86.59 Personal history of other mental and behavioral disorders; Z88.5 Allergy status to narcotic agent; Z88.0 Allergy status to penicillin
CPT/HCPCS: 55700; 88344; 88305; J2250; J2405; J0690; J3010; J1580; J2370; J2704

== ENCOUNTER → 2023-07-01 | Outpatient (CLI) | payer MEDICARE, OTHER ==
--- NOTE | 2023-07-01 13:36 | XR ---
EXAMINATION TYPE: XR chest 2V DATE OF EXAM: 07/01/2023 1:21 PM COMPARISON: None TECHNIQUE: XR chest 2V Frontal and lateral views of the chest. CLINICAL INDICATION:Male, 63 years old with history of [id number],[id number] CHRONIC BRONCHITIS,BRONCHOSPASM; FINDINGS: Lungs/Pleura: There is no evidence of pleural effusion, focal consolidation, or pneumothorax. Pulmonary vascularity: Unremarkable. Heart/mediastinum: Cardiomediastinal silhouette is unremarkable. Atherosclerotic calcifications are seen in the aorta. Musculoskeletal: No acute osseous pathology. IMPRESSION: No acute cardiopulmonary disease/process.
== END | disposition home or self-care (01) ==
LOC: RADXRYALE 13:08
PROVIDERS: ATTEND Internal Medicine
DX: J42 Unspecified chronic bronchitis (principal); J98.01 Acute bronchospasm
CPT/HCPCS: 71046

== ENCOUNTER → 2024-01-31 | Outpatient (CLI) | payer MEDICARE, OTHER ==
--- NOTE | 2024-01-31 16:39 | MR ---
EXAMINATION TYPE: MR shoulder RT wo con DATE OF EXAM: 01/31/2024 COMPARISON: None HISTORY: Pain TECHNIQUE: Multiplanar, multisequence imaging of the right shoulder is performed without contrast. FINDINGS: There is moderate osteoarthritic change at AC joint but no significant shoulder impingement. The teofilo ohumeral joint is intact. There is a full-thickness tear of the supraspinatus tendon involving the distal 1 cm of the supraspin atus tendon at its attachment to the greater tuberosity. There is an intrasubstance tear of the infra spinatus extending to the inferior surface of the tendon. There is a subchondral cyst at the attachme nt of the infraspinatus. There is no retraction of the musculotendinous junctions. The subscapularis tendon is intact. The biceps tendon is normal in signal intensity and position within the bicipital groove. The biceps anchor is intact but a small SLAP tear is suspected. There is no subacromial or subdeltoid bursitis. There are no joint effusions. IMPRESSION: 1. Rotator cuff tears involving supraspinatus and infraspinatus tendons 2. Moderate osteoarthritic change of the AC joint without significant shoulder impingement. 3. Suspected small SLAP tear
== END | disposition home or self-care (01) ==
LOC: RADMRIMAIN 06:44
PROVIDERS: ATTEND Orthopaedic Surgery
DX: M19.011 Primary osteoarthritis, right shoulder (principal); M67.813 Other specified disorders of tendon, right shoulder; M75.101 Unspecified rotator cuff tear or rupture of right shoulder, not specified as traumatic

== ENCOUNTER → 2024-02-10 | Outpatient (CLI) | payer MEDICARE, OTHER ==
[2024-02-10 16:17] LABS: Anion Gap 9.4 mmol/L (4.00-12.00); Carbon Dioxide 28.6 mmol/L (21.6-31.8); Potassium 4.5 mmol/L (3.5-5.5)
[2024-02-10 16:57] LABS: Basophils # (A) 0.03 X 10*3/uL (0.00-0.10); Basophils % (A) 0.4 %; Eosinophils # (A) 0.06 X 10*3/uL (0.04-0.35); Eosinophils % (A) 0.9 %; HCT 41.9 % (39.6-50.0); HGB 14.1 g/dL (13.0-17.0); Lymphocytes # (A) 1.25 X 10*3/uL (0.90-5.00); Lymphocytes % (A) 17.9 %; MCH 32.5 pg (27.0-32.0); MCHC 33.7 g/dL (32.0-37.0); MCV 96.5 FL (80.0-97.0); Mean Platelet Volume 10.1 FL (9.5-12.2); Monocytes # (A) 0.43 X 10*3/uL (0.20-1.00); Monocytes % (A) 6.2 %; NRBC Per 100 WBC 0 X 10*3/uL (0.00-0.01); Neutrophils # (A) 5.18 X 10*3/uL (1.80-7.70); Neutrophils % (A) 74.2 %; Platelet Count 349 X 10*3/uL (140-440); RBC 4.34 X 10*6/uL (4.40-5.60); RDW 12.2 % (11.5-14.5); WBC 6.98 X 10*3/uL (4.50-10.00)
== END | disposition home or self-care (01) ==
LOC: LABPAT 11:10
PROVIDERS: ATTEND Orthopaedic Surgery
DX: Z01.818 Encounter for other preprocedural examination (principal); M75.41 Impingement syndrome of right shoulder
CPT/HCPCS: 36415; 80051; 85025; 93005

== ENCOUNTER 2024-03-05 05:38 | Day surgery (SDC) | payer MEDICARE, OTHER ==
[2024-03-03 11:51] VITALS: BMI 24.2
--- NOTE | 2024-03-04 13:32 | HP ---
HISTORY AND PHYSICAL DATE OF SURGERY: 03/05/2024. HISTORY OF PRESENT ILLNESS: Suraj Grullon is a 63-year-old gentleman, seen with progressive right shoulder pain. We discussed options regarding treatment. He elected to proceed with right shoulder arthroscopy. Consents obtained. PAST MEDICAL HISTORY: Hypertension. PAST SURGICAL HISTORY: Noncontributory. DAILY MEDICATIONS: 1. Olmesartan. 2. Motrin. 3. Trazodone. ALLERGIES: Penicillin and Vicodin. SOCIAL HISTORY: He denies tobacco use. PHYSICAL EVALUATION OF THE RIGHT SHOULDER: Flexion is 140 degrees. Abduction is 120 degrees. External rotation is 30 degrees with pain and weakness. Tenderness along the anterolateral acromion and rotator cuff insertion site. Impingement is positive at 90 degrees. Cross-body adduction sign is positive. Drop-arm sign is positive. Distal neurovascular exam is intact. RADIOGRAPHS: Right shoulder revealed a type 2 acromion, evidence for acromioclavicular joint osteoarthritis and cystic changes of the tuberosity. MRI of the right shoulder revealed rotator cuff tear, acromioclavicular joint osteoarthritis, and labral tear. IMPRESSION: 1. Right shoulder impingement with rotator cuff tear. 2. Right shoulder acromioclavicular joint osteoarthritis. 3. Right shoulder labral tear. 4. Hypertension. PLAN: Right shoulder arthroscopy with subacromial decompression, arthroscopic rotator cuff repair, Manfred procedure and debridement. MMODL / IJN: [id number] /
[~2024-03-05 05:38] MED LIST changes: -LIDOCAINE 1% (10MG/ML) FOR IV START INTRADERMA PRN; -ONDANSETRON 4 MG/2 ML VIAL IVP PRN; +SCOPOLAMINE 1 MG/72 HR PATCH TRANSDERM ONE; -fentaNYL (PF) 50 MCG/ML 2 ML AMP IV PRN
[2024-03-05] MEDS: LACTATED RINGERS 1,000 ML IV SCH (06:35)
[2024-03-05] MEDS: ONDANSETRON 4 MG/2 ML VIAL IVP ONE (06:47)
[2024-03-05] MEDS: DEXAMETHASONE SOD PHOSPHATE 4 MG/ML 1 ML VIAL IV ONE (06:47)
[2024-03-05] MEDS: fentaNYL (PF) 50 MCG/ML 2 ML AMP IV PRN (07:12)
[2024-03-05] MEDS: MIDAZOLAM 2 MG/2 ML VIAL IV PRN (07:12)
[2024-03-05] MEDS ORDERED: ePHEDrine 50 MG/ML 1 ML VIAL ONE (07:23)
[2024-03-05] MEDS ORDERED: LIDOCAINE 1% INJ 10MG/ML (20 ML MDV) ONE (07:23)
[2024-03-05] MEDS ORDERED: PROPOFOL 10 MG/ML 20 ML VIAL IV ONE (07:23)
[2024-03-05] MEDS ORDERED: GLYCOPYRROLATE 0.2 MG/ML 2 ML VIAL ONE (07:23)
[2024-03-05] MEDS ORDERED: PHENYLEPHRINE-0.9% NACL SYG 1,000 MCG/10 ML SYRINGE ONE (07:23)
[2024-03-05] MEDS ORDERED: SUCCINYLCHOLINE CHLORIDE 200 MG/10 ML VIAL IV ONE (07:23)
[2024-03-05] MEDS: LACTATED RINGERS 1,000 ML IV ONE (09:00)
--- NOTE | 2024-03-05 09:18 | P.OP ---
Date of Procedure: 03/05/24 Preoperative Diagnosis: Right shoulder impingement Postoperative Diagnosis: 1. Right shoulder rotator cuff tear 2. Right shoulder impingement 3. Right shoulder long head biceps tendinitis/partial tear 4. Right shoulder acromioclavicular joint osteoarthritis 5. Right shoulder superficial labral tear Procedure(s) Performed: 1. Right shoulder arthroscopic rotator cuff repair 2. Right shoulder arthroscopic subacromial decompression 3. Right shoulder arthroscopic biceps tenodesis 4. Right shoulder arthroscopic Manfred procedure 5. Right shoulder arthroscopic debridement labral tear Implants: 3Arthrex 4.75 swivel lock anchors 1Arthrex 5.5 swivel lock anchor Anesthesia: GETA, regional (Interscalene block) Surgeon: Pillo Dixon Systems Manager #1: Akira Johnson Estimated Blood Loss (ml): 10 Pathology: none sent Condition: stable Disposition: PACU Indications for Procedure: 63-year-old patient seen with progressive right shoulder pain. After treatment options were discussed, he elected to proceed with arthroscopy. Operative Findings: See description of procedure Description of Procedure: Patient underwent an interscalene block by department of anesthesia. The patient was then taken to the operative suite. The patient underwent a general anesthetic by the department of anesthesia. The patient was placed into a lateral position and secured. There was appropriate padding of the bony prominence. Right shoulder was then prepped and draped in normal sterile orthopedic fashion. We placed the extremity in 10 pounds of longitudinal traction. A posterior incision was now made for a posterior working portal site. The trocar and cannula were inserted into the glenohumeral joint. Arthroscopy was initiated. Spinal needle was now inserted anteriorly, to ascertain the anterior working portal site. An incision was now made in that area, a trocar was inserted followed by a probe. There was partial tearing along head biceps tendon along with significant hyperemia. There was some superficial tearing of the superior labrum. There were grade I chondromalacia changes involving the humeral head without tears. I introduced a motorized shaver and debrided out the superficial tearing of the labrum and the partial tearing long head biceps tendon. At this point I decided to proceed with arthroscopic biceps tenodesis. I reduced a cannula through the anterior portal site. I now passed a loop and tack type stitch through the biceps tendon. I released the biceps tendon from the superior labrum. With the assistance of Nolan KLEIN I punched a hole at the interval for insertion of an anchor. The suture limb was passed through the eyelet of an Arthrex 4.75 swivel lock anchor. I placed the eyelet into her prepunched hole. I held in position while Nolan KLEIN tensioned the suture and deployed the anchor with good fixation noted. The residual suture limb was clipped. We had a stable appearing biceps tenodesis. The residual labrum was probed and was found to be stable. Instruments were now removed from the glenohumeral joint. Utilizing the posterior working portal site, the trocar and cannula were inserted into the subacromial space. Arthroscopy initiated. I made an incision 2 fingerbreadths lateral to the acromion. I introduced my trocar followed by my ArthroCare ablator. I now began ablating thick subacromial bursal tissue, which exposed the undersurface of the anterior acromion. There was diminished subacromial space. There was a very prominent anterior acromion. A motorized bur was introduced and a subacromial decompression was performed. I also excised some osteophytes off the inferior aspect of the distal clavicle. The AC joint was visualized and noted to be fairly arthritic. The motorized bur was introdu kyler in the anterior portal site and a Manfred procedure was performed without difficulty removing 8 mm of bone off the distal clavicle, decompressing the AC joint nicely. I turned my attention to the rotator cuff. There was a 1.5 cm rotator cuff tear. I debrided the margins getting down to stable tendon tissue. The defect/tear measured nearly 2 cm and was freely mobile over the footprint I introduced my motorized bur and abraded the footprint area, getting some petechial bleeding. I now made an accessory portal site off the lateral aspect of the acromion. I punched 1 holesmedial for medial row fixation with the assistance of Nolan KLEIN carefully tapping the punch with a mallet as I held the punch and the camera. I now introduced a Arthrex 4.75 swivel lock anchor with 3 sutures. With the assistance of Nolan KLEIN I passed all 6 limbs of suture through good bites of rotator cuff tendon. I now punched 2 holes for a lateral fixation. 3 limbs were passed through the eyelet of an Arthrex 4.75 swivel lock anchor. I placed the eyelet into the preplanned hole anteriorly.. I held in position while Nolan KLEIN tensioned all 3 limbs of suture and deployed the anchor with good fixation noted. We now passed the remaining 3 sutures through the eyelet of a 5.5 Arthrex swivel lock anchor. I placed into our prepunched hole posterior laterally and held in position while Nolan KLEIN tensioned the sutures and deployed the anchor with good fixation noted. All residual suture limbs were now clipped. We had good compression of the tendon along the entire footprint. Instruments now removed from the portal sites. All portal sites were approximated with nylon suture. Sterile dressings were applied followed by a shoulder immobilizer. Akira KLEIN assisted in this complex case. The patient was awakened, transferred to a bed, and taken to recovery in stable condition.
[2024-03-05 09:24] VITALS: TEMP 96.9
[2024-03-05 10:51] VITALS: BP 119/80; PULSE 78; RESP 18
== END 2024-03-05 11:08 | disposition home or self-care (01) ==
LOC: OR 05:38
PROVIDERS: ATTEND Orthopaedic Surgery
DX: S43.491A Other sprain of right shoulder joint, initial encounter (principal); M75.41 Impingement syndrome of right shoulder; M75.101 Unspecified rotator cuff tear or rupture of right shoulder, not specified as traumatic; M19.011 Primary osteoarthritis, right shoulder; I10 Essential (primary) hypertension; Z88.0 Allergy status to penicillin; Z79.899 Other long term (current) drug therapy; Z88.5 Allergy status to narcotic agent; Z79.1 Long term (current) use of non-steroidal anti-inflammatories (NSAID); X58.XXXA Exposure to other specified factors, initial encounter
CPT/HCPCS: 29824; 29826; 29827; 29828; C1713 ×3; J2250; J0330; J1100; J0690; J2405; J2001; J3010; J2704; J2371

== ENCOUNTER 2025-03-20 11:22 | Inpatient (IN) | payer MEDICARE, OTHER ==
[2025-03-20 11:54] LABS: HCT 35.5 % (39.6-50.0); HGB 12.9 g/dL (13.0-17.0); MCH 31.9 pg (27.0-32.0); MCHC 36.3 g/dL (32.0-37.0); MCV 87.7 fL (80.0-97.0); Mean Platelet Volume 9.3 fL (9.5-12.2); Platelet Count 370 10*3/uL (140-440); RBC 4.05 10*6/uL (4.40-5.60); RDW 12.2 % (11.5-14.5); WBC 17.58 10*3/uL (4.50-10.00)
--- NOTE | 2025-03-20 12:00 | ED ---
Dizziness HPI - General Source: patient, RN notes reviewed Mode of arrival: wheelchair Limitations: no limitations <Vineet Fox - Last Filed: 03/20/25 12:00> <Joel Carl - Last Filed: 03/20/25 13:10> - General Chief Complaint: Syncope Stated Complaint: syncope Time Seen by Provider: 03/20/25 11:34 - History of Present Illness Initial Comments: Quick note: This is a 64-year-old male with history including hypertension presenting for unwitnessed syncope occurring this morning. Patient states he was standing from his couch around 0300 this morning when his legs became "like Jell-O" and suffered a syncopal episode, stating he awoke around 0730 with bowel incontinence. Patient endorses recurring palpitations and dizziness following the event. Endorses possible food poisoning about 1 week ago with ongoing watery diarrhea. Patient denies history of syncope, seizures, CVA, AMI. Denies current use of blood thinners. Patient is unsure if he struck his head, denying a headache, vision changes, neck pain. Denies fever, chills, hemiplegia, paresthesia, chest pain, dyspnea, abdominal pain, hematochezia, melena. (Vineet Fox) - Related Data Home Medications Medication Instructions Recorded Confirmed Olmesartan/Hydrochlorothiazide 1 each PO DAILY 09/17/22 03/03/24 [Benicar Hct 40-25 mg Tablet] buPROPion HCL [buPROPion HCL XL] 300 mg PO DAILY 09/17/22 03/03/24 busPIRone HCl [Buspar] 5 mg PO DAILY 09/17/22 03/03/24 lamoTRIgine [LaMICtal] 200 mg PO DAILY 09/17/22 03/03/24 traZODone HCL 150 mg PO HS 09/17/22 03/03/24 Acetaminophen [Tylenol Extra 1,000 mg PO Q8H PRN 03/03/24 03/03/24 Strength] Previous Rx's Medication Instructions Recorded HYDROcodone/APAP 7.5-325MG [[place] 1 each PO Q6HR PRN #28 tab 03/05/24 7.5] Allergies Allergy/AdvReac Type Severity Reaction Status Date / Time hydrocodone [From Vicodin] Allergy Rash/Hives Verified 03/20/25 11:29 Penicillins Allergy Swelling Verified 03/20/25 11:29 Review of Systems ROS Other: All systems not noted in ROS Statement are negative. <Vineet Fox - Last Filed: 03/20/25 12:00> ROS Other: All systems not noted in ROS Statement are negative. <Joel Carl - Last Filed: 03/20/25 13:10> ROS Statement: Those systems with pertinent positive or pertinent negative responses have been documented in the HPI. Past Medical History Past Medical History: Hypertension Additional Past Medical History / Comment(s): inguinal hernia - left side. NO CPAP USE History of Any Multi-Drug Resistant Organisms: None Reported Past Surgical History: Hernia Repair, Orthopedic Surgery, Tonsillectomy Additional Past Surgical History / Comment(s): NASAL SX X3, colonoscopy, LEFT CARPAL TUNNEL REPAIR, RIGHT MENISCUS REPAIR Past Anesthesia/Blood Transfusion Reactions: No Reported Reaction Past Psychological History: Depression Smoking Status: Never smoker - Past Family History Father Family Medical History: Cancer Additional Family Medical History / Comment(s): LYMPHOMA <Vineet Fox - Last Filed: 03/20/25 12:00> General Exam Limitations: no limitations <Vineet Fox - Last Filed: 03/20/25 12:00> General appearance: alert, in no apparent distress Head exam: Present: atraumatic, normocephalic Eye exam: Present: normal appearance, PERRL ENT exam: Present: mucous membranes dry Neck exam: Present: normal inspection. Absent: tenderness, meningismus Respiratory exam: Present: normal lung sounds bilaterally. Absent: respiratory distress, wheezes Cardiovascular Exam: Present: regular rate, normal rhythm GI/Abdominal exam: Present: soft. Absent: distended, tenderness Neurological exam: Present: alert, oriented X3 Psychiatric exam: Present: normal affect, normal mood Skin exam: Present: warm, dry, intact <Joel Carl - Last Filed: 03/20/25 13:10> - General Exam Comments Initial Comments: Visual Physical Exam Vital signs reviewed General: Well-appearing, nontoxic, no acute distress. Head: Normocephalic, atraumatic Eyes: PERRLA, EOMI ENT: Airway patent Chest: Nonlabored breathing Skin: No visual rash, normal skin tone Neuro: Alert and oriented 3 Musculoskeletal: No gross abnormalities (Vineet oFx) Course Vital Signs 03/20/25 11:23 Temperature 97.6 F Pulse Rate 84 Respiratory 17 Rate Blood Pressure 99/62 O2 Sat by Pulse 98 Oximetry Medical Decision Making - Lab Data Result diagrams: 03/20/25 11:38 <Vineet Fox - Last Filed: 03/20/25 12:00> - Lab Data Result diagrams: 03/20/25 11:38 03/20/25 11:38 <Joel Carl - Last Filed: 03/20/25 13:10> - Medical Decision Making I completed the quick note portion of this chart signed MATHIEU Shore (Vineet Fox) Was pt. sent in by a medical professional or institution ([facility] Davis, [employer], urgent care, hospital, or fdc...) When possible be specific @ -No Did you speak to anyone other than the patient for history (EMS, parent, family, police, friend...)? What history was obtained from this source @ -No Did you review nursing and triage notes (agree or disagree)? Why? @ -I reviewed and agree with nursing and triage notes Were old charts reviewed (outside hosp., previous admission, EMS record, old EKG, old radiological studies, urgent care reports/EKG's, fdc records)? Report findings @ -No old charts were reviewed Differential Syncope: Valvular disease, hypertrophic cardiomyopathy, pulmonary embolism, tamponade, tachycardia, bradycardia, MA, hypovolemia, hemorrhage, dissection, anemia, intracranial hemorrhage, seizure, hypoglycemia, carbon monoxide poisoning, this is not meant to be an all-inclusive list. EKG interpreted by me (3pts min.). @Sinus rhythm rate of 82, NV interval 134, QRS duration 101, QTc [address] segment elevation. X-rays interpreted by me (1pt min.). @X-ray negative for acute cardiopulmonary findings CT interpreted by me (1pt min.). @ -None done U/S interpreted by me (1pt. min.). @ -None done What testing was considered but not performed or refused? (CT, X-rays, U/S, labs)? Why? @ -None What meds were considered but not given or refused? Why? @ -None Did you discuss the management of the patient with other professionals (professionals i.e. , PA, [employer], lab, RT, psych nurse, social worker school, textile bag sewer, teacher, annual giving officer, case management specialist)? Give summary @Dr. White will admit Was smoking cessation discussed for >3mins.? @ -No Was critical care preformed (if so, how long)? @ -No Were there social determinants of health that impacted care today? How? (Homelessness, low income, unemployed, alcoholism, drug addiction, transportation, low edu. Level, literacy, decrease access to med. care, group home, rehab)? @ -No Was there de-escalation of care discussed even if they declined (Discuss DNR or withdrawal of care, Hospice)? DNR status @ -No What co-morbidities impacted this encounter? (DM, HTN, Smoking, COPD, CAD, Cancer, CVA, ARF, Chemo, Hep., AIDS, mental health diagnosis, sleep apnea, morbid obesity)? @HTN Was patient admitted / discharged? Hospital course, mention meds given and route, prescriptions, significant lab abnormalities, going to OR and other pertinent info. @ -64-year-old male with prolonged diarrhea after recent travel, presenting with a prolonged syncopal episode likely related to hypovolemia from dehydration. Patient is in sinus rhythm with marginal blood pressure upon arrival. He does appear dehydrated. He has a significant leukocytosis and an acute kidney injury and sodium of 124. He is given 2 L in the emergency department and placed on continuous IV fluid for rehydration. He will be placed in observation for treatment of ROBE, dehydration with hypotension. Undiagnosed new problem with uncertain prognosis? @ -No Drug Therapy requiring intensive monitoring for toxicity (Heparin, Nitro, Insuli n, Cardizem)? @ -No Were any procedures done? @ -No Diagnosis/symptom? @ -Syncope secondary to dehydration secondary to diarrhea. ROBE, hyponatremia Acute, or Chronic, or Acute on Chronic? @ -[Acute Uncomplicated (without systemic symptoms) or Complicated (systemic symptoms)? @ -Default Side effects of treatment? @ -No Exacerbation, Progression, or Severe Exacerbation? @ -No Poses a threat to life or bodily function? How? (Chest pain, USA, MA, pneumonia, PE, COPD, DKA, ARF, appy, cholecystitis, CVA, Diverticulitis, Homicidal, Suicidal, threat to staff... and all critical care pts) @ -[yes, hypovolemia, shock, electrolyte abnormality (Joel Carl) - Lab Data Lab Results 03/20/25 03/20/25 03/20/25 Range/Units 11:38 11:38 11:38 WBC 17.58 H (4.50-10.00) 10*3/uL RBC 4.05 L (4.40-5.60) 10*6/uL Hgb 12.9 L (13.0-17.0) g/dL Hct 35.5 L (39.6-50.0) % MCV 87.7 (80.0-97.0) fL MCH 31.9 (27.0-32.0) pg MCHC 36.3 (32.0-37.0) g/dL Plt Count 370 (140-440) 10*3/uL MPV 9.3 L (9.5-12.2) fL Immature Gran % (Auto) 2.1 % Neutrophils % (Manual) 68 % Band Neuts % (Manual) 6 % Lymphocytes % (Manual) 15 % Monocytes % (Manual) 11 % Immature Gran # 0.37 H (0.00-0.04) 10*3/uL Neutrophils # (Manual) 13.00 H (1.3-7.7) k/uL Lymphocytes # (Manual) 2.64 (1.0-4.8) k/uL Monocytes # (Manual) 1.93 H (0-1.0) k/uL Nucleated RBCs 0 (0-0) /100 WBC Manual Slide Review Performed Anisocytosis (manual) Present Spherocytes Present PT 12.4 (10.0-12.5) sec INR 1.2 H (<1.2) APTT 27.8 (22.0-30.0) sec Sodium 124 L (137-145) mmol/L Potassium 3.7 (3.5-5.1) mmol/L Chloride 86 L (98-107) mmol/L Carbon Dioxide 25 (22-30) mmol/L Anion Gap 13 mmol/L BUN 23 H (9-20) mg/dL Creatinine 2.71 H (0.66-1.25) mg/dL Est GFR (CKD-EPI)AfAm 27 (>60 ml/min/1.73 sqM) Est GFR (CKD-EPI)NonAf 24 (>60 ml/min/1.73 sqM) Glucose 114 H (74-99) mg/dL Calcium 8.7 (8.4-10.2) mg/dL Magnesium (1.6-2.3) mg/dL Total Bilirubin 0.6 (0.2-1.3) mg/dL AST 28 (17-59) U/L ALT 41 (4-49) U/L Alkaline Phosphatase 98 (38-126) U/L Troponin I (0.000-0.034) ng/mL Total Protein 5.6 L (6.3-8.2) g/dL Albumin 3.1 L (3.5-5.0) g/dL 03/20/25 03/20/25 Range/Units 11:38 11:38 WBC (4.50-10.00) 10*3/uL RBC (4.40-5.60) 10*6/uL Hgb (13.0-17.0) g/dL Hct (39.6-50.0) % MCV (80.0-97.0) fL MCH (27.0-32.0) pg MCHC (32.0-37.0) g/dL Plt Count (140-440) 10*3/uL MPV (9.5-12.2) fL Immature Gran % (Auto) % Neutrophils % (Manual) % Band Neuts % (Manual) % Lymphocytes % (Manual) % Monocytes % (Manual) % Immature Gran # (0.00-0.04) 10*3/uL Neutrophils # (Manual) (1.3-7.7) k/uL Lymphocytes # (Manual) (1.0-4.8) k/uL Monocytes # (Manual) (0-1.0) k/uL Nucleated RBCs (0-0) /100 WBC Manual Slide Review Anisocytosis (manual) Spherocytes PT (10.0-12.5) sec INR (<1.2) APTT (22.0-30.0) sec Sodium (137-145) mmol/L Potassium (3.5-5.1) mmol/L Chloride (98-107) mmol/L Carbon Dioxide (22-30) mmol/L Anion Gap mmol/L BUN (9-20) mg/dL Creatinine (0.66-1.25) mg/dL Est GFR (CKD-EPI)AfAm (>60 ml/min/1.73 sqM) Est GFR (CKD-EPI)NonAf (>60 ml/min/1.73 sqM) Glucose (74-99) mg/dL Calcium (8.4-10.2) mg/dL Magnesium 2.2 (1.6-2.3) mg/dL Total Bilirubin (0.2-1.3) mg/dL AST (17-59) U/L ALT (4-49) U/L Alkaline Phosphatase (38-126) U/L Troponin I <0.012 (0.000-0.034) ng/mL Total Protein (6.3-8.2) g/dL Albumin (3.5-5.0) g/dL Disposition <Vineet Fox - Last Filed: 03/20/25 12:00> Is patient prescribed a controlled substance at d/c from ED?: No Time of Disposition: 13:10 <Joel Carl - Last Filed: 03/20/25 13:10> Clinical Impression: Syncope due to orthostatic hypotension, ROBE (acute kidney injury), Dehydration Disposition: ADMITTED IP TO THIS HOSP Condition: Stable Referrals: Pilar Georges MD [Primary Care Provider] - 1-2 days
[2025-03-20 12:03] LABS: INR 1.2 (<1.2); Partial Thromboplastin Time 27.8 sec (22.0-30.0); Prothrombin Time 12.4 sec (10.0-12.5)
[2025-03-20 12:06] LABS: ALT 41 U/L (4-49); AST 28 U/L (17-59); African American GFR (CKD) 27 (>60 ml/min/1.73 sqM); Albumin 3.1 g/dL (3.5-5.0); Alkaline Phosphatase 98 U/L (38-126); Anion Gap 13 mmol/L; Blood Urea Nitrogen 23 mg/dL (9-20); Calcium 8.7 mg/dL (8.4-10.2); Carbon Dioxide 25 mmol/L (22-30); Chloride 86 mmol/L (98-107); Glucose 114 mg/dL (74-99); Non-African American GFR(CKD) 24 (>60 ml/min/1.73 sqM); Potassium 3.7 mmol/L (3.5-5.1); Sodium 124 mmol/L (137-145); Total Bilirubin 0.6 mg/dL (0.2-1.3); Total Protein 5.6 g/dL (6.3-8.2)
--- NOTE | 2025-03-20 12:08 | XR ---
Chest, 2 view. CLINICAL INDICATION: Male, 64 years old with history of syncope COMPARISON: 07/01/2023 TECHNIQUE: PA and lateral views the chest are obtained. FINDINGS: The lungs are clear and there is no consolidative or interstitial opacity. There is no pleural effusion or pneumothorax. The heart, pulmonary vasculature, mediastinum and misael appear normal. The osseous structures are intact. IMPRESSION: No significant abnormality seen. No acute cardiopulmonary disease. [facility], , 03/20/2025 12:05 PM
[2025-03-20] MEDS: SODIUM CHLORIDE 0.9% 1,000 ML IV ONE (12:29)
[2025-03-20] MEDS: LACTATED RINGERS 1,000 ML IV ONE (12:29)
[2025-03-20 12:44] LABS: Band Neutrophils % 6 %; Lymphocytes # (M) 2.64 k/uL (1.0-4.8); Monocytes # (M) 1.93 k/uL (0-1.0); Neutrophils % (M) 68 %; Nucleated Red Blood Cells 0 /100 WBC (0-0); Total Cells Counted 100
[2025-03-20 12:45] LABS: Anisocytosis (M) Present
[2025-03-20 12:46] LABS: Spherocytes Present
[2025-03-20] MEDS ORDERED: NALOXONE 0.4 MG/ML 1 ML VIAL IV PRN (13:07)
[2025-03-20] MEDS: CIPROFLOXACIN HCL 250 MG TAB PO STA (14:10)
[2025-03-20] MEDS: SODIUM CHLORIDE 0.9% 1,000 ML IV SCH (14:11)
[2025-03-20] MEDS ORDERED: ALBUTEROL NEBULIZED 2.5 MG/3 ML INHALATION PRN (15:17)
[2025-03-20] MEDS ORDERED: IOPAMIDOL CONTRAST (ORAL USE) VIAL PO PRN (15:21)
[2025-03-20] MEDS ORDERED: LEVOFLOXACIN 500MG-D5W PMX 500 MG in DEXTROSE/WATER 1 100ML.BAG IVPB SCH (16:00)
--- NOTE | 2025-03-20 16:46 | CT ---
EXAMINATION TYPE: CT abdomen pelvis wo con DATE OF EXAM: 03/20/2025 4:19 PM COMPARISON: CT abdomen/pelvis 02/13/2017. CLINICAL INDICATION: Male, 64 years old with history of colitis; FOOD POISONING, NAUSEA, VOMITING, DI ARRHEA TECHNIQUE: Axial CT abdomen pelvis wo con;Sagittal and coronal reformats were created on a separate workstation. Oral contrast used: without Oral Contrast (none if empty) CT DLP: 504.5 mGycm, Automated exposure control for dose reduction was used. FINDINGS: LOWER CHEST: Unremarkable ABDOMEN LIVER: Unremarkable GALLBLADDER AND BILE DUCTS: Unremarkable. PANCREAS: Unremarkable. SPLEEN: Unremarkable. ADRENAL GLANDS: Unremarkable. KIDNEYS AND URETERS: Nonobstructive 5 mm right renal calculus. No evidence of hydronephrosis or urete r bilaterally. PELVIS BLADDER: No evidence for wall thickening or mass given limitations of exam. REPRODUCTIVE: Unremarkable. ABDOMEN & PELVIS STOMACH AND BOWEL: Large volume liquid stool throughout the rectum and colon with scattered regions o f mild colonic wall thickening and adjacent mesenteric stranding. Colonic diverticulosis. No evidence of small bowel obstruction. Stomach unremarkable. PERITONEUM/RETROPERITONEUM: No evidence of pneumoperitoneum or free fluid. VASCULATURE: No evidence of aortic aneurysm. MUSCULOSKELETAL: No acute osseous abnormalities LYMPH NODES: No gross evidence for lymphadenopathy. SOFT TISSUE/ABDOMINAL WALL: Unremarkable IMPRESSION: Large volume liquid colonic stool suggesting diarrhea with additional findings suggestive of infectio us colitis in the appropriate clinical setting. [facility], , 03/20/2025 4:43 PM
[2025-03-20] MEDS: metroNIDAZOLE 500 MG TAB PO SCH (17:37)
[2025-03-20] MEDS: HEPARIN SODIUM,PORCINE 5,000 UNIT/ML 1 ML VIAL SQ SCH (20:49)
[2025-03-20] MEDS: traZODone HCL 50 MG TAB PO SCH (20:50)
--- NOTE | 2025-03-20 22:26 | P.CONS ---
History of Present Illness - Reason for Consult Consult date: 03/20/25 Infectious colitis Requesting physician: Paul White - Chief Complaint Dizziness, diarrhea x 1 week - History of Present Illness Patient is a 64-year-old male with a past medical history significant for hypertension and depression presented to the hospital for evaluation of dizziness and unwitnessed syncopal episode however patient himself denies passing out patient complaining of diarrhea that have been going on for about a week in this patient who did have multiple loose stools frequency more than 10/day patient denies having any blood or mucus in the stool has been complaining of crampy abdominal pain moderate intensity and concern for possible food poisoning with the symptoms the patient was evaluated on presentation to the hospital patient was afebrile and no fever have been called subsequently patient was not tachycardic hypotensive or hypoxic patient did have white count of 17.58 with a left shift BUN and creatinine has been mildly elevated liver enzymes are normal stool for C. difficile was negative patient did have a chest x-ray that was negative for acute abnormality CT abdominal pelvis large volume liquid stool suggestive of infectious colitis patient has been admitted to the hospital infectious he was consulted for further management of antibiotic therapy Review of Systems Positive point and negatives has been mentioned in the HPI, complete review of systems was performed and all other systems are negative Past Medical History Past Medical History: Hypertension Additional Past Medical History / Comment(s): inguinal hernia - left side. NO CPAP USE History of Any Multi-Drug Resistant Organisms: None Reported Past Surgical History: Hernia Repair, Orthopedic Surgery, Tonsillectomy Additional Past Surgical History / Comment(s): NASAL SX X3, colonoscopy, LEFT CARPAL TUNNEL REPAIR, RIGHT MENISCUS REPAIR Past Anesthesia/Blood Transfusion Reactions: No Reported Reaction Past Psychological History: Depression Smoking Status: Never smoker - Past Family History Father Family Medical History: Cancer Additional Family Medical History / Comment(s): LYMPHOMA Medications and Allergies Home Medications Medication Instructions Recorded Confirmed Type Olmesartan/Hydrochlorothiazide 1 tab PO DAILY 09/17/22 03/20/25 History [Benicar Hct 40-25 mg Tablet] buPROPion HCL [buPROPion HCL XL] 300 mg PO DAILY 09/17/22 03/20/25 History busPIRone HCl [Buspar] 5 mg PO DAILY 09/17/22 03/20/25 History lamoTRIgine [LaMICtal] 200 mg PO DAILY 09/17/22 03/20/25 History traZODone HCL 150 mg PO HS 09/17/22 03/20/25 History Albuterol Inhaler [Ventolin Hfa 2 puff INHALATION RT-QID PRN 03/20/25 03/20/25 History Inhaler] Sildenafil Citrate 50 mg PO DAILY PRN 03/20/25 03/20/25 History Allergies Allergy/AdvReac Type Severity Reaction Status Date / Time hydrocodone [From Vicodin] Allergy Rash/Hives Verified 03/20/25 14:35 Penicillins Allergy Swelling Verified 03/20/25 14:35 Physical Exam Vitals: Vital Signs Temp Pulse Resp BP Pulse Ox 03/20/25 13:41 98.5 F 79 18 112/70 94 L 03/20/25 11:23 97.6 F 84 17 99/62 98 Intake and Output 03/20/25 03/20/25 03/20/25 06:59 14:59 22:59 Other: Weight 73.936 kg GENERAL DESCRIPTION: Middle-age male lying in bed, no distress. No tachypnea or accessory muscle of respiration use. HEENT: Shows Pallor , no scleral icterus. Oral mucous membrane is dry. No pha ryngeal erythema or thrush NECK: Trachea central, no thyromegaly. LUNGS: Unlabored breathing. Clear to auscultation anteriorly. No wheeze or crackle. HEART: S1, S2, regular rate and rhythm. No loud murmur ABDOMEN: Soft, no tenderness EXTREMITIES: No edema of feet. SKIN: No rash, no masses palpable. NEUROLOGICAL: The patient is awake, alert, oriented x3, mood and affect normal. Results CBC & Chem 7: 03/20/25 11:38 03/20/25 11:38 Labs: Abnormal Lab Results - Last 24 Hours (Table) 03/20/25 03/20/25 03/20/25 Range/Units 11:38 11:38 11:38 WBC 17.58 H (4.50-10.00) 10*3/uL RBC 4.05 L (4.40-5.60) 10*6/uL Hgb 12.9 L (13.0-17.0) g/dL Hct 35.5 L (39.6-50.0) % MPV 9.3 L (9.5-12.2) fL Immature Gran # 0.37 H (0.00-0.04) 10*3/uL Neutrophils # (Manual) 13.00 H (1.3-7.7) k/uL Monocytes # (Manual) 1.93 H (0-1.0) k/uL INR 1.2 H (<1.2) Sodium 124 L (137-145) mmol/L Chloride 86 L (98-107) mmol/L BUN 23 H (9-20) mg/dL Creatinine 2.71 H (0.66-1.25) mg/dL Glucose 114 H (74-99) mg/dL Total Protein 5.6 L (6.3-8.2) g/dL Albumin 3.1 L (3.5-5.0) g/dL Assessment and Plan (1) Diarrhea Current Visit: Yes Status: Acute Code(s): R19.7 - DIARRHEA, UNSPECIFIED SNOMED Code(s): 90378383 (2) Infectious colitis Current Visit: Yes Status: Acute Code(s): A09 - INFECTIOUS GASTROENTERITIS AND COLITIS, UNSPECIFIED SNOMED Code(s): 30176415 (3) Penicillin allergy Current Visit: Yes Status: Acute Code(s): Z88.0 - ALLERGY STATUS TO PENICILLIN SNOMED Code(s): 56324534 (4) Leukocytosis Current Visit: Yes Status: Acute Code(s): D72.829 - ELEVATED WHITE BLOOD CELL COUNT, UNSPECIFIED SNOMED Code(s): 554936448 Plan: 1patient presented to the hospital with dizziness weakness in this patient has been dealing with diarrhea for almost a week with multiple loose stools and concern for possible food poisoning patient did not have any recent antibiotic exposure and stool for C. difficile has been negative with a CT abdominal pelvis concerning for possible infectious colitis 2-penicillin allergy will limit the number of antibiotics safe to use 3-will check a stool for culture 4-empirically treated with Levaquin and Flagyl while waiting for the workup to be completed, avoid antimotility agent Question concern answered We will follow on clinical condition and cultures to further adjust medication if needed Thank you for this consultation we will follow the patient along with you Dictation was produced using [employer] dictation software. please excuse any grammatical, word or spelling errors. Time with Patient: Greater than 30
--- NOTE | 2025-03-20 23:54 | HP ---
HISTORY AND PHYSICAL CHIEF COMPLAINT: History of syncope, dehydration, and diarrhea. HISTORY OF PRESENT ILLNESS: This is a 64-year-old gentleman with past medical history of multiple medical issues including hypertension, being followed by Dr. Georges in the outpatient, apparently visited [facility] and nearby . The patient apparently had some drink with squeezed lemon with hand and the patient developed diarrhea, nausea, vomiting, and unable to keep anything down, and the patient apparently had a syncope. The patient admitted for further evaluation and treatment. There is no history of fever, rigors, or chills at this time. PAST MEDICAL HISTORY: Hypertension and inguinal hernia. MEDICATIONS: Home medication is albuterol. Dose and rest of medications reviewed. ALLERGIES: Vicodin. FAMILY HISTORY: History of lymphoma. SOCIAL HISTORY: Occasional alcohol. REVIEW OF SYSTEMS: Fourteen-point review of systems is negative except as mentioned earlier. PHYSICAL EXAMINATION: VITAL SIGNS: Pulse is 79, blood pressure 112/70, and respirations 18. HEENT: Conjunctivae are normal. Oral mucosa is dry. NECK: No JVD. CARDIOVASCULAR: S1 and S2. ABDOMEN: Soft. Mild diffuse discomfort and mild diffuse distention. Bowel sounds are present. No ascites and no mass palpable. LEGS: No edema. No swelling. LABORATORY DATA: WBC 9.8. Sodium 124 and creatinine is 2.7. C difficile is negative. ASSESSMENT: 1. Syncope, secondary to severe dehydration. 2. Acute renal failure with prerenal acute tubular necrosis. 3. Nausea and diarrhea, possible acute gastroenteritis. 4. Elevated white blood cells. 5. Hypertension. 6. History of inguinal hernia. 7. History of degenerative joint disease. RECOMMENDATIONS: This 64-year-old gentleman presented with multiple complex medical issues. We will monitor the patient closely. I will recommend symptomatic treatment with IV fluids. I would recommend also cultures and stool cultures, and stool for ova, parasites, Empiric antibiotic treatment also will be initiated. Overall prognosis is guarded because the patient is also likely to have food poisoning. I would recommend telemetry currently and also recommend 2D echo and further cardiac workup also at this time. The creatinine will be closely monitored and Nephrology will be consulted if there is no improvement. Further recommendations to follow. MMODL / IJN: [id number] / MTDD
[2025-03-21] MEDS: ACETAMINOPHEN TAB 325 MG TAB PO PRN (00:33)
[2025-03-21] MEDS: PANTOPRAZOLE 40 MG TABLET PO SCH (06:18)
[2025-03-21 07:14] LABS: HCT 34.1 % (39.6-50.0); HGB 11.9 g/dL (13.0-17.0); MCH 32.1 pg (27.0-32.0); MCHC 34.9 g/dL (32.0-37.0); MCV 91.9 fL (80.0-97.0); Mean Platelet Volume 9.5 fL (9.5-12.2); Platelet Count 368 10*3/uL (140-440); RBC 3.71 10*6/uL (4.40-5.60); RDW 12.5 % (11.5-14.5); WBC 12.55 10*3/uL (4.50-10.00)
[2025-03-21 07:25] LABS: ALT 38 U/L (4-49); AST 24 U/L (17-59); African American GFR (CKD) 60 (>60 ml/min/1.73 sqM); Albumin 2.7 g/dL (3.5-5.0); Albumin/Globulin Ratio 1.1; Alkaline Phosphatase 97 U/L (38-126); Anion Gap 6 mmol/L; Blood Urea Nitrogen 16 mg/dL (9-20); Calcium 8.3 mg/dL (8.4-10.2); Carbon Dioxide 29 mmol/L (22-30); Chloride 97 mmol/L (98-107); Globulin 2.4 g/dL; Glucose 108 mg/dL (74-99); Non-African American GFR(CKD) 52 (>60 ml/min/1.73 sqM); Potassium 3.2 mmol/L (3.5-5.1); Sodium 132 mmol/L (137-145); Total Bilirubin 0.5 mg/dL (0.2-1.3); Total Protein 5.1 g/dL (6.3-8.2)
[2025-03-21 08:36] LABS: Band Neutrophils % 6 %; Lymphocytes # (M) 2.13 k/uL (1.0-4.8); Monocytes # (M) 0.75 k/uL (0-1.0); Neutrophils # (M) 9.66 k/uL (1.3-7.7); Neutrophils % (M) 71 %; Nucleated Red Blood Cells 0 /100 WBC (0-0); Total Cells Counted 100
[2025-03-21 08:37] LABS: Spherocytes Present
[2025-03-21] MEDS: buPROPion XL 300 MG TAB.ER.24H PO SCH (09:11)
[2025-03-21] MEDS: lamoTRIgine 100 MG TAB PO SCH (09:11)
[2025-03-21] MEDS: LEVOFLOXACIN 500MG-D5W PMX 500 MG in DEXTROSE/WATER 1 100ML.BAG IVPB SCH (12:31)
[2025-03-21] MEDS ORDERED: Potassium Replacement Protocol 1 EACH MISC MISCELLANE PRN ×2 (12:46→17:48)
[2025-03-21] MEDS: POTASSIUM CHLORIDE ER 20 MEQ TAB.ER PO SCH (13:37)
--- NOTE | 2025-03-21 16:11 | P.PN ---
Subjective Progress Note Date: 03/21/25 Principal diagnosis: Reason for follow-up is colitis Patient is a 64-year-old male with a past medical history significant for hypertension and depression presented to the hospital for evaluation of dizziness and unwitnessed syncopal episode and has been dealing with significant diarrhea for the last few days concerning for food poisoning with evidence of colitis on the CT elevated white count. On today's evaluation that is 03/21/2025,the patient remains to be afebrile, patient is on room air not requiring supplemental oxygen and denies any shortness of breath no chest pain or cough.Patient denies having any nausea or vomiting, lower abdominal crampy pain and diarrhea historian. Patient white count is 12.55, creatinine 1.43 stool cultures are pending Objective - Vital Signs Vital signs: Vital Signs Temp 98.1 F 03/21/25 07:00 Pulse 107 H 03/21/25 07:00 Resp 18 03/21/25 08:00 BP 107/68 03/21/25 07:00 Pulse Ox 96 03/21/25 07:00 FiO2 Intake & Output 03/20/25 03/21/25 03/21/25 18:59 06:59 18:59 Weight 73.936 kg 73.936 kg Other: Voiding Method Toilet Toilet # Voids 2 # Bowel Movements 2 - Exam GENERAL DESCRIPTION: An elderly male lying in bed in no distress RESPIRATORY SYSTEM: Unlabored breathing , decreased breath sounds at bases HEART: S1 S2 regular rate and rhythm , ABDOMEN: Soft , no tenderness EXTREMITIES: No edema feet - Labs CBC & Chem 7: 03/21/25 06:56 03/21/25 06:56 Labs: Abnormal Lab Results - Last 24 Hours (Table) 03/21/25 03/21/25 Range/Units 06:56 06:56 WBC 12.55 H (4.50-10.00) 10*3/uL RBC 3.71 L (4.40-5.60) 10*6/uL Hgb 11.9 L (13.0-17.0) g/dL Hct 34.1 L (39.6-50.0) % MCH 32.1 H (27.0-32.0) pg Immature Gran # 0.48 H (0.00-0.04) 10*3/uL Neutrophils # (Manual) 9.66 H (1.3-7.7) k/uL Sodium 132 L (137-145) mmol/L Potassium 3.2 L (3.5-5.1) mmol/L Chloride 97 L (98-107) mmol/L Creatinine 1.43 H (0.66-1.25) mg/dL Glucose 108 H (74-99) mg/dL Calcium 8.3 L (8.4-10.2) mg/dL Total Protein 5.1 L (6.3-8.2) g/dL Albumin 2.7 L (3.5-5.0) g/dL Assessment and Plan (1) Diarrhea Current Visit: Yes Status: Acute Code(s): R19.7 - DIARRHEA, UNSPECIFIED SNOMED Code(s): 60956931 (2) Infectious colitis Current Visit: Yes Status: Acute Code(s): A09 - INFECTIOUS GASTROENTERITIS A ND COLITIS, UNSPECIFIED SNOMED Code(s): 44204469 (3) Penicillin allergy Current Visit: Yes Status: Acute Code(s): Z88.0 - ALLERGY STATUS TO PENICILLIN SNOMED Code(s): 75127098 (4) Leukocytosis Current Visit: Yes Status: Acute Code(s): D72.829 - ELEVATED WHITE BLOOD CELL COUNT, UNSPECIFIED SNOMED Code(s): 601780021 Plan: 1patient presented to the hospital with dizziness weakness in this patient has been dealing with diarrhea for almost a week with multiple loose stools and concern for possible food poisoning patient did not have any recent antibiotic exposure and stool for C. difficile has been negative with a CT abdominal pelvis concerning for possible infectious colitis 2-penicillin allergy will limit the number of antibiotics safe to use 3-stool for C. difficile negative stool culture currently pending 4. Will be treated with Levaquin and Flagyl while waiting for the culture to be finalized Dictation was produced using [employer] dictation software. please excuse any grammatical, word or spelling errors. Time with Patient: Less than 30
[2025-03-21] MEDS ORDERED: Magnesium Replacement Protocol 1 EACH MISC MISCELLANE PRN (17:48)
--- NOTE | 2025-03-22 05:45 | PN ---
PROGRESS NOTE DATE OF SERVICE: 03/21/2025 SUBJECTIVE: This 64-year-old gentleman admitted with significant dehydration, diarrhea, possibly, traveler's diarrhea after going to [facility], also had features of colitis. Also, the patient is being closely monitored. At this time, white count is elevated. The patient also has renal failure, which is improving after IV fluids. PAST MEDICAL HISTORY: Reviewed. REVIEW OF SYSTEMS: 14-point review of systems is negative except as mentioned earlier. MEDICATIONS CURRENT: Reviewed. PHYSICAL EXAMINATION: VITAL SIGNS: Pulse is 78, blood pressure 113/68, respirations 18. HEENT: Conjunctivae normal. CARDIAC: S1, S2. ABDOMEN: Soft. Mild diffuse tenderness present. No guarding. No rigidity. LAB STUDIES: WBC 12.55. ASSESSMENT: 1. Syncope possibly secondary to severe dehydration. 2. Acute renal failure with prerenal acute tubular necrosis. 3. Nausea, vomiting, diarrhea, possible acute gastric and recent traveler's diarrhea. 4. Elevated WBC. 5. Hypertension. 6. History of inguinal hernia. 7. History of degenerative joint disease. RECOMMENDATIONS: Continue current management and treatment. Continue with empiric antibiotics. Supplement potassium. Closely monitor. Repeat labs. Guarded prognosis because of multiple complex medical conditions. Further recommendations to follow. MMODL / IJN: [id number] /
[2025-03-22 08:34] LABS: Blood Urea Nitrogen 5.7 mg/dL (9.0-27.0); Carbon Dioxide 25.5 mmol/L (21.6-31.8); Chloride 101 mmol/L (96-109); Glucose 96 mg/dL (70-110); Potassium 4.1 mmol/L (3.5-5.5); Sodium 137 mmol/L (135-145)
[2025-03-22 08:35] LABS: Calcium 8.6 mg/dL (8.7-10.3)
[2025-03-22 09:39] LABS: Basophils % (A) 0.8 %; Eosinophils # (A) 0.04 X 10*3/uL (0.04-0.35); Eosinophils % (A) 0.3 %; HGB 12.2 g/dL (13.0-17.0); Lymphocytes # (A) 1.41 X 10*3/uL (0.90-5.00); Lymphocytes % (A) 11.3 %; MCH 31.1 pg (27.0-32.0); MCV 94.4 FL (80.0-97.0); Mean Platelet Volume 9.8 FL (9.5-12.2); Monocytes # (A) 1.04 X 10*3/uL (0.20-1.00); Monocytes % (A) 8.3 %; NRBC Per 100 WBC 0 X 10*3/uL (0.00-0.01); Neutrophils # (A) 9.32 X 10*3/uL (1.80-7.70); Neutrophils % (A) 74.9 %; Platelet Count 464 X 10*3/uL (140-440); RBC 3.92 X 10*6/uL (4.40-5.60); WBC 12.46 X 10*3/uL (4.50-10.00)
[2025-03-22] MEDS: AZITHROMYCIN 500 MG TAB PO SCH (14:30)
--- NOTE | 2025-03-22 17:03 | PN ---
PROGRESS NOTE DATE OF SERVICE: 03/22/2025 SUBJECTIVE: This 64-year-old gentleman admitted with significant diarrheal disease, also had colitis, Campylobacter jejuni, isolated. OBJECTIVE: VITAL SIGNS: Pulse 75, blood pressure 110/77, and respirations 18. HEENT: Conjunctivae normal. CARDIOVASCULAR: S1 and S2. ABDOMEN: Soft. Mild diffuse tenderness. EXTREMITIES: Legs, no edema. NERVOUS SYSTEM: Nonfocal LABORATORY DATA: WBC 12.46. ASSESSMENT: 1. Syncope, possibly secondary to severe dehydration. 2. Nausea, vomiting, diarrhea, possibly gastroenteritis with traveler's diarrhea with Campylobacter jejuni. 3. Acute renal failure with prerenal acute tubular necrosis. 4. Increased WBC. 5. Hypertension. 6. History of inguinal hernia. 7. History of degenerative joint disease. RECOMMENDATIONS: Recommend to continue current management and continue symptomatic treatment. Repeat labs. Continue with antibiotic empirically. Guarded prognosis. Further recommendations to follow. MMODL / IJN: [id number] /
[2025-03-23 08:13] LABS: ALT 29 U/L (10-49); AST 22 U/L (14-35); Albumin 3.2 g/dL (3.8-4.9); Albumin/Globulin Ratio 1.52 Ratio (1.60-3.17); Alkaline Phosphatase 126 U/L (41-126); Calcium 8.4 mg/dL (8.7-10.3); Carbon Dioxide 27.4 mmol/L (21.6-31.8); Chloride 100 mmol/L (96-109); Globulin 2.1 g/dL (1.6-3.3); Glucose 93 mg/dL (70-110); Potassium 4.3 mmol/L (3.5-5.5); Sodium 137 mmol/L (135-145); Total Bilirubin 0.3 mg/dL (0.3-1.2); Total Protein 5.3 g/dL (6.2-8.2)
[2025-03-23 08:15] LABS: Basophils # (A) 0.11 X 10*3/uL (0.00-0.10); Basophils % (A) 0.8 %; Eosinophils # (A) 0.06 X 10*3/uL (0.04-0.35); Eosinophils % (A) 0.4 %; HCT 36.9 % (39.6-50.0); HGB 12.2 g/dL (13.0-17.0); Lymphocytes # (A) 1.67 X 10*3/uL (0.90-5.00); Lymphocytes % (A) 12.1 %; MCH 31.4 pg (27.0-32.0); MCHC 33.1 g/dL (32.0-37.0); MCV 95.1 FL (80.0-97.0); Mean Platelet Volume 9.4 FL (9.5-12.2); Monocytes # (A) 1.24 X 10*3/uL (0.20-1.00); NRBC Per 100 WBC 0 X 10*3/uL (0.00-0.01); Neutrophils # (A) 10.13 X 10*3/uL (1.80-7.70); Neutrophils % (A) 73.5 %; Platelet Count 495 X 10*3/uL (140-440); RBC 3.88 X 10*6/uL (4.40-5.60); RDW 13.1 % (11.5-14.5); WBC 13.79 X 10*3/uL (4.50-10.00)
[2025-03-23] MEDS: CHOLESTYRAMINE (WITH SUGAR) 4 GM PACKET PO SCH (08:33)
--- NOTE | 2025-03-23 14:01 | P.PN ---
Subjective Progress Note Date: 03/22/25 Principal diagnosis: Reason for follow-up is colitis Patient is a 64-year-old male with a past medical history significant for hypertension and depression presented to the hospital for evaluation of dizziness and unwitnessed syncopal episode and has been dealing with significant diarrhea for the last few days concerning for food poisoning with evidence of colitis on the CT elevated white count. On today's evaluation that is 03/22/2025, the patient continues to be afebrile, the patient is on room air and breathing comfortably, the Pt denies having any chest pain or cough, the patient denies having any abdominal pain no vomiting and diarrhea has slowed down. Patient white count is 12.46 creatinine is 1.0, stool culture with Campylobacter as reported by the nursing staff Objective - Vital Signs Vital signs: Vital Signs Temp 97.9 F 03/22/25 08:16 Pulse 79 03/22/25 08:16 Resp 18 03/22/25 08:16 BP 122/64 03/22/25 08:16 Pulse Ox 97 03/22/25 08:59 FiO2 Intake & Output 03/21/25 03/22/25 03/22/25 18:59 06:59 18:59 Intake Total 120 Balance 120 Intake: Oral 120 Other: Voiding Method Toilet Toilet # Voids 3 - Exam GENERAL DESCRIPTION: An elderly male lying in bed in no distress RESPIRATORY SYSTEM: Unlabored breathing , decreased breath sounds at bases HEART: S1 S2 regular rate and rhythm , ABDOMEN: Soft , no tenderness EXTREMITIES: No edema feet - Labs CBC & Chem 7: 03/23/25 05:11 03/23/25 05:11 Labs: Abnormal Lab Results - Last 24 Hours (Table) 03/22/25 03/22/25 Range/Units 05:28 05:28 WBC 12.46 H (4.50-10.00) X 10*3/uL RBC 3.92 L (4.40-5.60) X 10*6/uL Hgb 12.2 L (13.0-17.0) g/dL Hct 37.0 L (39.6-50.0) % Plt Count 464 H (140-440) X 10*3/uL Immature Gran # 0.55 H (0.00-0.04) X 10*3/uL Neutrophils # 9.32 H (1.80-7.70) X 10*3/uL Monocytes # 1.04 H (0.20-1.00) X 10*3/uL BUN 5.7 L (9.0-27.0) mg/dL BUN/Creatinine Ratio 5.70 L (12.00-20.00) Ratio Calcium 8.6 L (8.7-10.3) mg/dL Microbiology - Last 24 Hours (Table) 03/20/25 16:32 Blood Culture - Preliminary Blood Assessment and Plan (1) Diarrhea Current Visit: Yes Status: Acute Code(s): R19.7 - DIARRHEA, UNSPECIFIED SNOMED Code(s): 92854253 (2) Infectious colitis Current Visit: Yes Status: Acute Code(s): A09 - INFECTIOUS GASTROENTERITIS AND COLITIS, UNSPECIFIED SNOMED Code(s): 16179992 (3) Penicillin allergy Current Visit: Yes Status: Acute Code(s): Z88.0 - ALLERGY STATUS TO PEN ICILLIN SNOMED Code(s): 88073228 (4) Leukocytosis Current Visit: Yes Status: Acute Code(s): D72.829 - ELEVATED WHITE BLOOD CELL COUNT, UNSPECIFIED SNOMED Code(s): 851239167 Plan: 1patient presented to the hospital with dizziness weakness in this patient has been dealing with diarrhea for almost a week with multiple loose stools and concern for possible food poisoning patient did not have any recent antibiotic exposure and stool for C. difficile has been negative with a CT abdominal pelvis concerning for possible infectious colitis 2-penicillin allergy will limit the number of antibiotics safe to use 3-stool for C. difficile negative stool culture currently growing Campylobacter 4. Will discontinue Levaquin and Flagyl start the patient on Zithromax 500 mg daily x 3 days Dictation was produced using [employer] dictation software. please excuse any grammatical, word or spelling errors. Time with Patient: Less than 30
--- NOTE | 2025-03-23 14:02 | P.PN ---
Subjective Progress Note Date: 03/23/25 Principal diagnosis: Reason for follow-up is colitis Patient is a 64-year-old male with a past medical history significant for hypertension and depression presented to the hospital for evaluation of dizziness and unwitnessed syncopal episode and has been dealing with significant diarrhea for the last few days concerning for food poisoning with evidence of colitis on the CT elevated white count. On today's evaluation that is 03/23/2025, Patient is afebrile patient is currently on room air and denies having any shortness of breath, the patient denies any chest pain or cough, the patient denies any nausea vomiting did have resolution of his diarrhea and has been complaining of swelling to the left scrotal area. Patient did have a white count of 13.79 creatinine is 1.0 Objective - Vital Signs Vital signs: Vital Signs Temp 98.7 F 03/23/25 07:00 Pulse 73 03/23/25 07:00 Resp 16 03/23/25 07:00 BP 128/73 03/23/25 07:00 Pulse Ox 94 L 03/23/25 07:00 FiO2 Intake & Output 03/22/25 03/23/25 03/23/25 18:59 06:59 18:59 Intake Total 240 Balance 240 Intake: Oral 240 Other: # Voids 3 - Exam GENERAL DESCRIPTION: An elderly male lying in bed in no distress RESPIRATORY SYSTEM: Unlabored breathing , decreased breath sounds at bases HEART: S1 S2 regular rate and rhythm , ABDOMEN: Soft , no tenderness EXTREMITIES: No edema feet - Labs CBC & Chem 7: 03/23/25 05:11 03/23/25 05:11 Labs: Abnormal Lab Results - Last 24 Hours (Table) 03/23/25 03/23/25 Range/Units 05:11 05:11 WBC 13.79 H (4.50-10.00) X 10*3/uL RBC 3.88 L (4.40-5.60) X 10*6/uL Hgb 12.2 L (13.0-17.0) g/dL Hct 36.9 L (39.6-50.0) % Plt Count 495 H (140-440) X 10*3/uL MPV 9.4 L (9.5-12.2) FL Immature Gran # 0.58 H (0.00-0.04) X 10*3/uL Neutrophils # 10.13 H (1.80-7.70) X 10*3/uL Monocytes # 1.24 H (0.20-1.00) X 10*3/uL Basophils # 0.11 H (0.00-0.10) X 10*3/uL BUN 6.0 L (9.0-27.0) mg/dL BUN/Creatinine Ratio 6.00 L (12.00-20.00) Ratio Calcium 8.4 L (8.7-10.3) mg/dL Total Protein 5.3 L (6.2-8.2) g/dL Albumin 3.2 L (3.8-4.9) g/dL Albumin/Globulin Ratio 1.52 L (1.60-3.17) Ratio Microbiology - Last 24 Hours (Table) 03/20/25 13:29 Stool Culture - Final Stool Campylobacter coli 03/20/25 16:32 Blood Culture - Preliminary Blood Assessment and Plan (1) Diarrhea Current Visit: Yes Status: Acute Code(s): R19.7 - DIARRHEA, UNSPECIFIED SNOMED Code(s): 27192610 (2) Infectious colitis Current Visit: Yes Status: Acute Code(s): A09 - INFECTIOUS GASTROENTERITIS AND COLITIS, UNSPECIFIED SNOMED Code(s): 55151211 (3) Penicillin allergy Current Visit: Yes Status: Acute Code(s): Z88.0 - ALLERGY STATUS TO PENICILLIN SNOMED Code(s): 13249626 (4) Leukocytosis Current Visit: Yes Status: Acute Code(s): D72.829 - ELEVATED WHITE BLOOD CELL COUNT, UNSPECIFIED SNOMED Code(s): 335528952 Plan: 1patient presented to the hospital with dizziness weakness in this patient has been dealing with diarrhea for almost a week with multiple loose stools and concern for possible food poisoning patient did not have any recent antibiotic exposure and stool for C. difficile has been negative with a CT abdominal pelvis concerning for possible infectious colitis 2-penicillin allergy will limit the number of antibiotics safe to use 3-stool for C. difficile negative stool culture currently growing Campylobacter 4. Patient to continue with Zithromax 500 mg daily, ultrasound of the scrotal area has been ordered clinically doubt epididymitis possible hernia Dictation was produced using [employer] dictation software. please excuse any grammatical, word or spelling errors. Time with Patient: Less than 30
--- NOTE | 2025-03-23 14:38 | US ---
EXAMINATION TYPE: US scrotum with doppler. DATE OF EXAM: 03/23/2025 COMPARISON: CT 3 days earlier CLINICAL INDICATION: Male, 64 years old with history of pain, swelling; Pain and swelling in left charles in. Hx of left hernia repair 30ish years ago TECHNIQUE: Grayscale, color Doppler and spectral Doppler imaging of the scrotum. FINDINGS: EXAM MEASUREMENTS: TESTICLES: Right Testicle: 5.4 x 3.1 x 2.6 cm Left Testicle: 4.0 x 2.7 x 1.9 cm EPIDIDYMIS HEAD: Right Epididymis: 3.0 cm Left Epididymis: 0.8 cm Doppler performed to assess for testicular vascularity; good bilateral color flow and spectral wavefo osvaldo are seen. Presence of hydroceles: yes on right Presence of varicoceles: yes on left Large epi head cyst measuring 3.0 x 3.2 x 2.1cm Hypoechoic heterogeneous area seen that extends from left groin to left scrotum. It does not appear t o enlarge during valsalva, however there is movement noted in some spots. This does appear to be in t he area of patient's concern. IMPRESSION: Appropriate arterial and venous spectral waveforms to the testes. Normal structures extend from the i nguinal region to the left scrotum are seen on ultrasound. On CT there is asymmetric more prominent f at stranding at this level. Inflammation and/or infection at this level is suspected. No well-formed fluid collection or abscess is seen. [facility], , 03/23/2025 2:35 PM
[2025-03-23] MEDS: LEVOFLOXACIN 750MG-D5W PMX 750 MG in DEXTROSE/WATER 1 150ML.BAG IVPB SCH (14:39)
[2025-03-23 18:02] LABS: Appearance,Urine Clear (Clear); Bacteria,Urine Rare /hpf; Bilirubin,Urine Negative (Negative); Blood,Urine Trace (Negative); Color,Urine Colorless; Glucose,Urine (UA) Negative (Negative); Ketones,Urine Negative (Negative); Leukocyte Esterase,Urine Trace (Negative); Nitrite,Urine Negative (Negative); Protein,Urine Negative (Negative); RBC,Urine 1 /hpf (0-5); Specific Gravity,Urine 1.006 (1.001-1.035); Urobilinogen,Urine <2.0 mg/dL (<2.0); WBC,Urine 13 /hpf (0-5)
[2025-03-24 08:24] VITALS: RESP 16
[2025-03-24 08:25] LABS: HCT 35.1 % (39.6-50.0); HGB 11.6 g/dL (13.0-17.0); MCH 31.1 pg (27.0-32.0); MCV 94.1 FL (80.0-97.0); Mean Platelet Volume 9.4 FL (9.5-12.2); NRBC Per 100 WBC 0 X 10*3/uL (0.00-0.01); Platelet Count 464 X 10*3/uL (140-440); RBC 3.73 X 10*6/uL (4.40-5.60); RDW 13.1 % (11.5-14.5)
[2025-03-24] MEDS: LEVOFLOXACIN 750MG-D5W PMX 750 MG in DEXTROSE/WATER 1 150ML.BAG IVPB SCH (08:30)
[2025-03-24] MEDS: IBUPROFEN 800 MG TAB PO PRN (08:30)
[2025-03-24 08:41] LABS: Blood Urea Nitrogen 8.5 mg/dL (9.0-27.0); Calcium 8.4 mg/dL (8.7-10.3); Carbon Dioxide 26.3 mmol/L (21.6-31.8); Chloride 101 mmol/L (96-109); Glucose 102 mg/dL (70-110); Potassium 4.3 mmol/L (3.5-5.5); Sodium 137 mmol/L (135-145)
--- NOTE | 2025-03-24 09:36 | P.PN ---
Subjective Progress Note Date: 03/23/25 This is a very pleasant 64-year-old male who was recently admitted with significant diarrheal disease also colitis with Campylobacter jejuni noted on the stool cultures. Patient is being followed by infectious disease maintained on Zithromax and is reporting significant scrotal swelling and tenderness more so on the left that has been progressively getting worse overnight. Patient denies any pain or burning with urination is having some bowel movements still that are somewhat loose although slightly forming up and is maintained on Questran. Patient has been up and walking although it is becoming more painful with the swelling of the scrotum. Patient reports he does have history of inguinal hernia repair many years ago. Patient is afebrile and white count is trending down with no reported chest pain or shortness of breath. Patient is tolerating diet with no reported nausea or vomiting Review of systems: Constitutional: No reports of fatigue, fever, or chills Cardiovascular: No reports of chest pain or palpitations Respiratory: No reports of shortness of breath or cough GI: No reports of nausea, no reports of vomiting, reports some mild loose stool although is forming a little more : No reports of dysuria or retention, reports significant scrotal swelling and pain and tenderness more so on the left Neurovascular: No reports of generalized weakness All medications have been reviewed PHYSICAL EXAMINATION: GENERAL: The patient is alert and oriented x4, Well developed, thin built HEENT: Pupils are round and equally reacting to light. EOMI. no scleral icterus. No conjunctival pallor. Normocephalic, atraumatic. No pharyngeal erythema. No thyromegaly. CARDIOVASCULAR: S1 and S2 muffled PULMONARY: diminished breath sounds bilaterally with no wheezing or rhonchi noted. ABDOMEN: soft. Nontender on exam. obese. non-distended, normoactive bowel sounds. No palpable organomegaly. Significant scrotal swelling and painful on palpation more so on the left MUSCULOSKELETAL: No joint swelling or deformity. EXTREMITIES: No cyanosis, clubbing, or pedal edema. NEUROLOGICAL: Gross neurological examination did not reveal any focal deficits. SKIN: No rashes. Assessment: Syncope, likely secondary to severe dehydration Nausea, vomiting, diarrhea possible gastroenteritis with traveler's diarrhea with Campylobacter jejuni on the stool culture Acute renal failure with prerenal acute tubular necrosis, improving on gentle hydration Leukocytosis secondary to gastroenteritis Hypertension History of inguinal hernia History of degenerative joint disease History of depression GI prophylaxis DVT prophylaxis Full code Plan: Recommend to continue with current medications and management with infectious disease following. Patient maintained on Zithromax and will transition to Levaquin Patient having significant scrotal swelling and tenderness on the left, will obtain an ultrasound and also possibly consult urology as general surgery recommends this for further evaluation. Patient does have history of hernia on the left side Current supportive care and Questran along with probiotics Encourage increase activity as tolerated Encouraged the patient to elevate the scrotum while at rest Will follow-up on repeat labs and await urology evaluation Possible discharge planning in the next 24 to 48 hours once cleared by consultations The impression and plan of care has been dictated by Enedina Rodriguez nurse practitioner as directed. Dr. Christopher MD I have performed a history and examination and MDM of this patient, discussed the same with the dictator, and agree with the dictator's assessment and plan as written ,documented as a scribe. Based on total visit time, I have performed more than 50% of the visit. Any additional findings or plans will be noted. Objective - Vital Signs Vital signs: Vital Signs Temp 98.2 F 03/24/25 07:00 Pulse 74 03/24/25 07:00 Resp 16 03/24/25 07:00 BP 138/86 03/24/25 07:00 Pulse Ox 98 03/24/25 07:00 FiO2 Intake & Output 03/23/25 03/24/25 03/24/25 18:59 06:59 18:59 Intake Total 590 Balance 590 Intake: Oral 590 Other: # Voids 8 3 - Labs CBC & Chem 7: 03/24/25 04:39 03/24/25 04:39 Labs: Abnormal Lab Results - Last 24 Hours (Table) 03/23/25 03/24/25 03/24/25 Range/Units 17:20 04:39 04:39 WBC 15.00 H (4.50-10.00) X 10*3/uL RBC 3.73 L (4.40-5.60) X 10*6/uL Hgb 11.6 L (13.0-17.0) g/dL Hct 35.1 L (39.6-50.0) % Plt Count 464 H (140-440) X 10*3/uL MPV 9.4 L (9.5-12.2) FL BUN 8.5 L (9.0-27.0) mg/dL BUN/Creatinine Ratio 8.50 L (12.00-20.00) Ratio Calcium 8.4 L (8.7-10.3) mg/dL Urine Blood Trace H (Negative) Ur Leukocyte Esterase Trace H (Negative) Urine WBC 13 H (0-5) /hpf Urine Bacteria Rare H (None) /hpf Microbiology - Last 24 Hours (Table) 03/20/25 16:32 Blood Culture - Preliminary Blood 03/20/25 13:29 Stool Culture - Final Stool Campylobacter coli
--- NOTE | 2025-03-24 09:54 | P.GSCN ---
History of Present Illness Consult date: 03/24/25 History of present illness: 64-year-old gentleman in the hospital with diarrhea. Patient in the last 24 hours was complaining of upper scrotal and groin pain. He has a history of a hernia repair and wonders whether it may be related to that. He was evaluated by medicine and felt to have perhaps a scrotal cyst. For this reason I was asked see the patient. The patient has had a vasectomy in the past. No fever or chills. There is no trauma. There is no ecchymosis by history. Patient had an ultrasound of the scrotum identifying an epididymal cyst at the head of the epididymis on the left side. Review of Systems All systems: negative - Constitutional Denies fever, Denies weight loss - EENT Eyes: denies blurred vision Ears, nose, mouth and throat: Denies dysphagia - Cardiovascular Denies chest pain, Denies shortness of breath - Respiratory Denies cough, Denies 7 - Gastrointestinal Reports as per HPI - Genitourinary Denies dysuria, Denies hematuria - Integumentary Denies rash, Denies unusual bruising - Neurological Denies headaches, Denies syncope - Hematologic/Lymphatic Denies easy bleeding, Denies easy bruising Past Medical History Past Medical History: Hypertension Additional Past Medical History / Comment(s): inguinal hernia - left side. NO CPAP USE History of Any Multi-Drug Resistant Organisms: None Reported Past Surgical History: Hernia Repair, Orthopedic Surgery, Tonsillectomy Additional Past Surgical History / Comment(s): NASAL SX X3, colonoscopy, LEFT CARPAL TUNNEL REPAIR, RIGHT MENISCUS REPAIR Past Anesthesia/Blood Transfusion Reactions: No Reported Reaction Past Psychological History: Depression Smoking Status: Never smoker Past Alcohol Use History: Occasional Past Drug Use History: None Reported Additional Drug Use History / Comment(s): OCCASIONAL USE, INSTRUCTED NOT TO USE 24HRS PRIOR TO PROCEDURE - Past Family History Father Family Medical History: Cancer Additional Family Medical History / Comment(s): LYMPHOMA Medications and Allergies Home Medications Medication Instructions Recorded Confirmed Type Olmesartan/Hydrochlorothiazide 1 tab PO DAILY 09/17/22 03/20/25 History [Benicar Hct 40-25 mg Tablet] buPROPion HCL [buPROPion HCL XL] 300 mg PO DAILY 09/17/22 03/20/25 History busPIRone HCl [Buspar] 5 mg PO DAILY 09/17/22 03/20/25 History lamoTRIgine [LaMICtal] 200 mg PO DAILY 09/17/22 03/20/25 History traZODone HCL 150 mg PO HS 09/17/22 03/20/25 History Albuterol Inhaler [Ventolin Hfa 2 puff INHALATION RT-QID PRN 03/20/25 03/20/25 History Inhaler] Sildenafil Citrate 50 mg PO DAILY PRN 03/20/25 03/20/25 History Allergies Allergy/AdvReac Type Severity Reaction Status Date / Time hydrocodone [From Vicodin] Allergy Rash/Hives Verified 03/20/25 14:35 Penicillins Allergy Swelling Verified 03/20/25 14:35 Surgical - Exam Vital Signs Temp Pulse Resp BP Pulse Ox 97.6 F 84 17 99/62 98 03/20/25 11:23 03/20/25 11:23 03/20/25 11:23 03/20/25 11:23 03/20/25 11:23 - General well developed, well nourished, no distress - Eyes normal ocular movement, no icteric - ENT no hearing loss, no congestion - Neck no masses, trachea midline - Respiratory normal respiratory effort, clear to auscultation - Abdomen Abdomen: soft, non tender, no guarding, no rigid, no rebound - Genitourinary The patient has a normal groin exam. His penis is normal. The scrotal skin is unremarkable. The the testicles are normal. He is tender on the left side. The head of the epididymis is swollen and tender. - Integumentary no rash, no abnormal pigmentation - Neurologic no disoriented, no combative - Psychiatric oriented to time, oriented to person, oriented to place, speech is normal, memory intact Results - Labs 03/24/25 04:39 03/24/25 04:39 Abnormal Lab Results - Last 24 Hours (Table) 03/23/25 03/24/25 03/24/25 Range/Units 17:20 04:39 04:39 WBC 15.00 H (4.50-10.00) X 10*3/uL RBC 3.73 L (4.40-5.60) X 10*6/uL Hgb 11.6 L (13.0-17.0) g/dL Hct 35.1 L (39.6-50.0) % Plt Count 464 H (140-440) X 10*3/uL MPV 9.4 L (9.5-12.2) FL BUN 8.5 L (9.0-27.0) mg/dL BUN/Creatinine Ratio 8.50 L (12.00-20.00) Ratio Calcium 8.4 L (8.7-10.3) mg/dL Urine Blood Trace H (Negative) Ur Leukocyte Esterase Trace H (Negative) Urine WBC 13 H (0-5) /hpf Urine Bacteria Rare H (None) /hpf Microbiology - Last 24 Hours (Table) 03/20/25 16:32 Blood Culture - Preliminary Blood 03/20/25 13:29 Stool Culture - Final Stool Campylobacter coli Diabetes panel 03/24/25 Range/Units 04:39 Sodium 137 (135-145) mmol/L Potassium 4.3 (3.5-5.5) mmol/L Chloride 101 (96-109) mmol/L Carbon Dioxide 26.3 (21.6-31.8) mmol/L BUN 8.5 L (9.0-27.0) mg/dL Creatinine 1.0 (0.6-1.5) mg/dL Glucose 102 (70-110) mg/dL Calcium 8.4 L (8.7-10.3) mg/dL Calcium panel 03/24/25 Range/Units 04:39 Calcium 8.4 L (8.7-10.3) mg/dL Pituitary panel 03/24/25 Range/Units 04:39 Sodium 137 (135-145) mmol/L Potassium 4.3 (3.5-5.5) mmol/L Chloride 101 (96-109) mmol/L Carbon Dioxide 26.3 (21.6-31.8) mmol/L BUN 8.5 L (9.0-27.0) mg/dL Creatinine 1.0 (0.6-1.5) mg/dL Glucose 102 (70-110) mg/dL Calcium 8.4 L (8.7-10.3) mg/dL Adrenal panel 03/24/25 Range/Units 04:39 Sodium 137 (135-145) mmol/L Potassium 4.3 (3.5-5.5) mmol/L Chloride 101 (96-109) mmol/L Carbon Dioxide 26.3 (21.6-31.8) mmol/L BUN 8.5 L (9.0-27.0) mg/dL Creatinine 1.0 (0.6-1.5) mg/dL Glucose 102 (70-110) mg/dL Calcium 8.4 L (8.7-10.3) mg/dL - Imaging Additional studies: Scrotal ultrasound report and images reviewed by myself Assessment and Plan Assessment: Impression: This patient has an epididymal cyst in the upper pole of the left testicle causing discomfort. It does not appear infectious and the fact that he had a vasectomy is consistent with that. Recommendations: Acute epididymal cyst can be tender. Based on ultrasound this is what it is. He is not infectious and the fact that he has had a vasectomy. The treatment is Tylenol or Motrin elevation and ice as needed. Nothing further needs to be done. Time with Patient: Greater than 30
[2025-03-24 12:03] LABS: Basophils # (A) 0.12 X 10*3/uL (0.00-0.10); Basophils % (A) 0.8 %; Eosinophils # (A) 0.08 X 10*3/uL (0.04-0.35); Eosinophils % (A) 0.5 %; Lymphocytes # (A) 1.79 X 10*3/uL (0.90-5.00); Lymphocytes % (A) 11.9 %; Monocytes # (A) 1.64 X 10*3/uL (0.20-1.00); Monocytes % (A) 10.9 %; Neutrophils # (A) 10.84 X 10*3/uL (1.80-7.70); Neutrophils % (A) 72.4 %; RBC Morphology Normal (Normal)
[2025-03-24 12:46] VITALS: BMI 24.0
[2025-03-24 15:04] VITALS: BP 126/71; PULSE 69; TEMP 97.9
--- NOTE | 2025-03-25 16:46 | P.PN ---
Subjective Progress Note Date: 03/24/25 Principal diagnosis: Reason for follow-up is colitis Patient is a 64-year-old male with a past medical history significant for hypertension and depression presented to the hospital for evaluation of dizziness and unwitnessed syncopal episode and has been dealing with significant diarrhea for the last few days concerning for food poisoning with evidence of colitis on the CT elevated white count. On today's evaluation that is 03/24/2025, patient has been afebrile, patient is breathing comfortably and is currently on room air, patient denies having any chest pain and cough, patient denies nausea vomiting or abdominal pain, diarrhea has slowed down and left scrotal swelling has decreased. Patient white count is up to 15,000, creatinine is 1.0 urine is mildly positive blood culture negative Objective - Vital Signs Vital signs: Vital Signs Temp 98.2 F 03/24/25 07:00 Pulse 74 03/24/25 07:00 Resp 16 03/24/25 07:00 BP 138/86 03/24/25 07:00 Pulse Ox 98 03/24/25 07:00 FiO2 Intake & Output 03/23/25 03/24/25 03/24/25 18:59 06:59 18:59 Intake Total 590 Balance 590 Intake: Oral 590 Other: # Voids 8 3 - Exam GENERAL DESCRIPTION: An elderly male lying in bed in no distress RESPIRATORY SYSTEM: Unlabored breathing , decreased breath sounds at bases HEART: S1 S2 regular rate and rhythm , ABDOMEN: Soft , no tenderness EXTREMITIES: No edema feet - Labs CBC & Chem 7: 03/24/25 04:39 03/24/25 04:39 Labs: Abnormal Lab Results - Last 24 Hours (Table) 03/23/25 03/24/25 03/24/25 Range/Units 17:20 04:39 04:39 WBC 15.00 H (4.50-10.00) X 10*3/uL RBC 3.73 L (4.40-5.60) X 10*6/uL Hgb 11.6 L (13.0-17.0) g/dL Hct 35.1 L (39.6-50.0) % Plt Count 464 H (140-440) X 10*3/uL MPV 9.4 L (9.5-12.2) FL BUN 8.5 L (9.0-27.0) mg/dL BUN/Creatinine Ratio 8.50 L (12.00-20.00) Ratio Calcium 8.4 L (8.7-10.3) mg/dL Urine Blood Trace H (Negative) Ur Leukocyte Esterase Trace H (Negative) Urine WBC 13 H (0-5) /hpf Urine Bacteria Rare H (None) /hpf Microbiology - Last 24 Hours (Table) 03/20/25 16:32 Blood Culture - Preliminary Blood 03/20/25 13:29 Stool Culture - Final Stool Campylobacter coli Assessment and Plan (1) Diarrhea Status: Acute Code(s): R19.7 - DIARRHEA, UNSPECIFIED SNOMED Code(s): 66203023 (2) Infectious colitis Status: Acute Code(s): A09 - INFECTIOUS GASTROENTERITIS AND COLITIS, UNSPECIFIED SNOMED Code(s): 51276983 (3) Penicillin allergy Status: Acute Code(s): Z88.0 - ALLERGY STATUS TO PENICILLIN SNOMED Code(s): 30330015 (4) Leukocytosis Status: Acute Code(s): D72.829 - ELEVATED WHITE BLOOD CELL COUNT, UNSPECIFIED SNOMED Code(s): 632638695 Plan: 1patient presented to the hospital with dizziness weakness in this patient has been dealing with diarrhea for almost a week with multiple loose stools and concern for possible food poisoning patient did not have any recent antibiotic exposure and stool for C. difficile has been negative with a CT abdominal pelvis concerning for possible infectious colitis 2-penicillin allergy will limit the number of antibiotics safe to use 3-stool for C. difficile negative stool culture currently growing Campylobacter 4. Patient did have no scrotal swelling has been diagnosed with epididymal cyst urology seen the patient not concern for infection given failed therapy with oral and Zithromax for his gastroenteritis Dictation was produced using [employer] dictation software. please excuse any grammatical, word or spelling errors. Time with Patient: Less than 30
== END 2025-03-24 15:57 | disposition home or self-care (01) | DRG 391 ==
LOC: EC 11:22 → 6NMEDSUR 13:07 → OBSVTOIN 13:08 → 6NMEDSUR 14:27
PROVIDERS: ADMIT Hospitalist; ATTEND Hospitalist
DX: A09 Infectious gastroenteritis and colitis, unspecified (principal); N17.0 Acute kidney failure with tubular necrosis; I10 Essential (primary) hypertension; A05.9 Bacterial foodborne intoxication, unspecified; E86.0 Dehydration; R15.9 Full incontinence of feces; I95.1 Orthostatic hypotension; N50.89 Other specified disorders of the male genital organs; N50.3 Cyst of epididymis; Z79.899 Other long term (current) drug therapy; Z88.0 Allergy status to penicillin; Z88.5 Allergy status to narcotic agent
CPT/HCPCS: 36415; 71046; 74176; 76870; 80048; 80053; 81001; 82272; 83630; 83735; 84484; 85025; 85610; 85730; 87040; 87045; 87046; 87324; 87329; 93005; 93975; 94760; 96360; 96361; 96372; 99285